=== PATIENT | female | born 1945 | race Caucasian/White ===

== ENCOUNTER 2016-11-18 10:29 | Inpatient (IN) | payer OTHER ==
--- NOTE | 2016-10-20 08:34 | HISTORY & PHYSICAL EXAMINATION ---
DATE OF ADMISSION: 11/18/2015 PROCEDURE: Left total knee replacement. HISTORY OF PRESENT ILLNESS: Silvina is a dom 71-year-old female who presents for preoperative evaluation prior to her left knee replacement. She states she has been having the pain in this knee for several years now, which has gradually worsened, it has now gotten to the point that it is affecting her daily activities including walking, standing, and going up and down steps. She has tried previous cortisone injection without relief. She has also had a previous knee arthroscopy in 2005 without relief. She has tried oral anti-inflammatories as well as extra strength Tylenol. At this point in time, has failed conservative measures and at this point in time would like to proceed with a left knee replacement. PAST MEDICAL HISTORY: 1. Hypertension. 2. High cholesterol. 3. Hypothyroidism. 4. GERD. ALLERGIES: No known drug allergies. CURRENT MEDICATIONS: 1. Atenolol 50 mg 1/2 tablet daily. 2. Triamterene-hydrochlorothiazide 37.5/25 mg 1/2 tablet daily. 3. Meloxicam 7.5 mg daily. 4. Simvastatin 40 mg daily. 5. Potassium chloride 10 mEq daily. 6. Levothyroxine 50 mcg daily. 7. Vitamin D3. 8. Omeprazole 20 mg daily. 9. Benadryl for sleep. 10. Potassium chloride 10 mEq daily. 11. Oxybutynin 10 mg daily. PAST SURGICAL HISTORY: 1. Left knee arthroscopy 2005. 2. Right knee arthroscopy 2010. FAMILY HISTORY: Noncontributory. SOCIAL HISTORY: The patient lives in a 2-story home. She denies any history of smoking or tobacco use. No alcohol consumption. REVIEW OF SYSTEMS: Otherwise negative. Please see HPI for pertinent positives. PHYSICAL EXAMINATION: GENERAL: Dom 71-year-old female in no acute distress, alert and oriented x3. She is 61 inches tall, weighs 205 pounds. VITAL SIGNS: Blood pressure is 132/72, pulse 72. HEENT: Normocephalic, atraumatic. CARDIAC: Regular rate and rhythm. No murmurs or gallops appreciated. Resting pulse 72 beats minute. LUNGS: Clear to auscultation without rales or wheeze bilaterally. ABDOMEN: Soft, nontender. Bowel sounds present. EXTREMITIES: Left lower extremity is neurovascularly intact. Calves are soft and nontender. DP pulse +2. Demonstrates good quad tone. Straight leg raise without lag. No erythema or warmth. Has mild effusion. Overall has varus alignment. Positive crepitation with motion, range of motion is 0/5/110. Knee is ligamentously stable. IMAGING: Reviewed of left knee show findings consistent with end-stage DJD including complete loss of joint space of the medial compartment with [id number] changes including joint space narrowing, subchondral sclerosis, and osteophyte formation noted. IMPRESSION: 1. Left knee degenerative joint disease. 2. Hypertension. 3. High cholesterol. 4. Hypothyroidism. 5. Gastroesophageal reflux disease. PLAN: Further care discussed with patient. At this point in time, has failed conservative measures and would like to proceed with a left knee replacement. Plan on discharge home with home health physical therapy. We will place on aspirin 81 mg p.o. b.i.d. for a month postop.
[2016-10-20 08:50] VITALS: BMI 39.0
--- NOTE | 2016-10-20 09:16 | PAT Medication Instructions ---
Service Date Oct 20, 2016. Current Home Medication List Atenolol (Tenormin), 25 MG PO QAM Carboxymethylcellulose Sodium (Refresh), 1 DROP OPB UD PRN for prn Cholecalciferol (Vitamin D3), 5,000 UNIT PO QAM Doxylamine Succinate (Sleep) (Sleep Aid), 1 TAB PO HS Levothyroxine Sodium (Levothyroxine Sodium), 1 TAB PO QAM Meloxicam (Mobic), 7.5 MG PO QAM Omeprazole (Prilosec), 20 MG PO QAM Potassium Ext Rel (Klor-Con), 10 MEQ PO QAM Simvastatin (Zocor), 40 MG PO QPM Triamterene/Hctz (Dyazide 37.5MG/25MG), 1 TAB PO QAM [oxybutynin er], 10 MG PO QAM Medication Instructions For Your Scheduled Surgery - Hold the following medications the morning of surgery: Cholecalciferol (Vitamin D3), 5,000 UNIT PO QAM Potassium Ext Rel (Klor-Con), 10 MEQ PO QAM Triamterene/Hctz (Dyazide 37.5MG/25MG), 1 TAB PO QAM Meloxicam (Mobic), 7.5 MG PO QAM (otherwise okay to continue per surgeon) - Take the following medications the morning of surgery with a sip of water OTHERWISE NOTHING TO EAT OR DRINK AFTER MIDNIGHT: Atenolol (Tenormin), 25 MG PO QAM Carboxymethylcellulose Sodium (Refresh), 1 DROP OPB UD PRN Levothyroxine Sodium (Levothyroxine Sodium), 1 TAB PO QAM Omeprazole (Prilosec), 20 MG PO QAM [oxybutynin er], 10 MG PO QAM - Take the following medications as scheduled the night before surgery: Simvastatin (Zocor), 40 MG PO QPM Doxylamine Succinate (Sleep) (Sleep Aid), 1 TAB PO HS If you have any questions please call us at [phone] (Berta Pickering PA-C ) or [phone] or [phone]
[2016-10-20 10:07] LABS: BASO % 0.2 %; BASO ABS # 0.02 K/uL (0-0.2); COMPLETE YES; EOS % 1.1 %; HEMATOCRIT 41.5 % (37-47); IG% 0.2 %; LYMPH % 27.5 %; LYMPH ABS # 2.68 K/uL (1.2-3.4); MEAN CELL VOLUME 89.6 fL (80-100); MEAN CORPUSCULAR HEMOGLOBIN 30.5 pg (25-34); MEAN PLATELET VOLUME 10.6 fL (7.4-10.4); MONO % 5.9 %; NEUT % 65.1 %; PLATELET COUNT 230 K/uL (130-400); RED BLOOD COUNT 4.63 M/uL (4.2-5.4); WHITE BLOOD COUNT 9.76 K/uL (4.8-10.8)
[2016-10-20 10:12] LABS: URINE APPEARANCE CLEAR (CLEAR); URINE BILIRUBIN NEG (NEG); URINE COLOR YELLOW; URINE NITRITE NEG (NEG); URINE SPECIFIC GRAVITY 1.017 (1.000-1.030); UROBILINOGEN NEG (NEG)
--- NOTE | 2016-10-20 10:14 | DIAGNOSTIC IMAGING REPORT ---
CHEST PREADMISSION(PA/LAT) CLINICAL HISTORY: Preoperative evaluation COMPARISON STUDY: No previous studies for comparison. FINDINGS: Lung volumes are normal. There is no pneumothorax or pleural effusion. There is no evidence of pulmonary edema. Cardiac size is normal. There is a large hiatal hernia. There is no evidence of pulmonary edema. IMPRESSION: 1. No acute cardiopulmonary findings. 2. Large hiatal hernia. Electronically signed by: Bhavik Hanley M.D. 10/20/2016 10:13 AM
[2016-10-20 10:15] LABS: PROTHROMBIN TIME (PATIENT) 10.6 SECONDS (9.0-12.0)
[2016-10-20 10:18] LABS: MANUAL MICROSCOPIC REQUIRED? NO; REVIEW REQ? NO
[2016-10-20 10:21] LABS: ESTIMATED AVERAGE GLUCOSE 123 mg/dl; HA1C FLAG Normal (Normal)
[2016-10-20 11:03] LABS: BUN/CREATININE RATIO 13.2 (10-20); CREATININE 1.4 mg/dl (0.60-1.20); POTASSIUM 3.6 mmol/L (3.5-5.1)
[2016-10-20 11:28] LABS: CALCIUM 9.2 mg/dl (8.5-10.1)
[2016-11-18] VITALS (9 sets, daily range): BP systolic 91–108; BP diastolic 54–70; PULSE 48–64; TEMP 36.2–37; O2SAT 91–98; Ht 154.9 cm; Wt 95.1 kg
[~2016-11-18] VITALS: Ht 154.9 cm; Wt 95.1 kg
[2016-11-18] MEDS: TRANEXAMIC ACID INJ 1,000 MG in SODIUM CHLORIDE 0.9% 100ML 100 ML IV SCH ×2 (06:30→13:33)
--- NOTE | 2016-11-18 09:26 | History & Physical Bridge Note ---
H&P Re-Evaluation Bridge Note: I have examined the patient, reviewed the History & Physical and in the interval since the performance of the History & Physical I have noted the following changes of clinical significance: No changes noted
[~2016-11-18 10:29] MED LIST: ACETAMINOPHEN 500 MG TAB PO SCH; ATEN-173 PO; BUPIVACAINE 0.5 % 5 MG/1 ML PF 10ML VIAL ONE; CARB1SOL OPB; CEFAZOLIN 2000 MG/60 ML D5W 60 ML IV SCH; CHOL20007 PO; CeleBREX 200 MG CAP PO SCH; DEXAMETHASONE 4 MG TAB PO SCH; DOXY25TA19 PO; FAMOTIDINE 20 MG TAB PO SCH; GABAPENTIN 300 MG CAP PO SCH; LACTATED RINGER'S 1000ML IV SCH; LACTATED RINGER'S 500 ML IV SCH; LEVO50TA6 PO; MELO7.5T5 PO; METOCLOPRAMIDE HCL 10 MG TAB PO SCH; OXYBUTYNIN PO; POTA20TA16 PO; PRLSR20 PO; ROPIVACAINE 5MG/ML 30 ML 150 MG, BUPIVACAINE/EPINEPHR 0.5% MPF 30 ML, KETOROLAC TROMETH... INFIL SCH; SIMV40TA2 PO; TRIA37.5 PO
[2016-11-18] MEDS ORDERED: PROPOFOL IV EMULSION 10 MG/ML 20 ML VIAL IV ONE (12:59)
[2016-11-18] MEDS ORDERED: DEXAMETHASONE SOD INJ 4 MG/ML VIAL ONE (12:59)
[2016-11-18] MEDS ORDERED: LIDOCAINE HCL 2% 2 ML VIAL (20MG/ML) ONE (12:59)
[2016-11-18] MEDS ORDERED: ONDANSETRON INJ 2 MG/ML 2 ML VIAL ONE (12:59)
[2016-11-18] MEDS ORDERED: FENTANYL CITRATE INJ 50 MCG/1 ML 2 ML VIAL ONE (13:00)
[2016-11-18] MEDS ORDERED: MIDAZOLAM HCL 1 MG/ML 2ML VIAL ONE ×2 (13:00)
[2016-11-18] MEDS ORDERED: EpHEDrine SULFATE INJ 50 MG/ML AMP IV PRN (13:15)
[2016-11-18] MEDS ORDERED: FENTANYL CITRATE INJ 50 MCG/1 ML 2 ML VIAL IV PRN (13:15)
[2016-11-18] MEDS ORDERED: ONDANSETRON INJ 2 MG/ML 2 ML VIAL IV PRN (13:15)
[2016-11-18] MEDS ORDERED: ATROPINE SULFATE 0.1 MG/ML 5ML SYR IV PRN (13:15)
[2016-11-18] MEDS ORDERED: ORTHO JOINT ANESTHETIC ONE (13:25)
[2016-11-18] MEDS ORDERED: GLYCOPYRROLATE INJ 0.2 MG/ML VIAL ONE (14:16)
[2016-11-18] MEDS ORDERED: BACITRACIN 50000 UNIT VIAL IR ONE (14:34)
[2016-11-18] MEDS ORDERED: POVIDONE-IODINE OP SOLN 30 ML BTL TOP ONE (14:56)
--- NOTE | 2016-11-18 14:58 | [facility] Post Operative Brief Note ---
Immediate Operative Summary Operative Date Nov 18, 2016. Pre-Operative Diagnosis Left Knee Degenerative Joint Disease Post-Operative Diagnosis Left Knee Degenerative Joint Disease Procedure(s) Performed Left Total Knee Arthroplasty Surgeon Dr. [place] Simental Fermentation Scientist Surgeon(s) Steven Moura PA-C Estimated Blood Loss 5ml Findings severe djd left knee Specimens A. Left Knee Bone and Tissue Complication(s) None Disposition Recovery Room / PACU
--- NOTE | 2016-11-18 15:15 | OPERATIVE REPORT ---
DATE OF OPERATION: 11/18/2016 PREOPERATIVE DIAGNOSIS: Severe end-stage degenerative joint disease, left knee. POSTOPERATIVE DIAGNOSIS: Severe end-stage degenerative joint disease, left knee. PROCEDURE: Left total knee arthroplasty utilizing Haney \T\ Nephew Journey II nonblock total knee arthroplasty size 4 femur, 3 tibia, 9 poly, and 29 oval patella. SURGEON: Dr. Simental. FLOOR STEWARD/STEWARDESS: Milagro Moura, who was necessary for prepping, draping, retraction, wound closure of deep fascia, subQ and skin and was necessary for the case. ESTIMATED BLOOD LOSS: 5 mL. COMPLICATIONS: None. TOURNIQUET TIME: 40 minutes. HISTORY OF PRESENT ILLNESS: The patient presents as a very pleasant 71-year-old white female with complaints of ongoing pain attributable to her left knee. She has been unresponsive to conservative therapy and presents today for total knee arthroplasty. She has failed all attempts at conservative management including injections, viscosupplementations, relative rest, activity modification and bracing. PROCEDURE: The patient was properly prepped and draped in supine position for total knee arthroplasty after identifying the appropriate surgical site. An anterior midline incision was made through the subcutaneous tissues down to the region of the extensor mechanism. A medial parapatellar incision was subsequently made. Meticulous hemostasis was obtained and performed at all times. The patella having been subluxed lateralward, medial and lateral meniscal remnants were excised. The patellar cut was then initially made and was sized to the appropriate size. After subluxing the tibia forward the appropriate meniscal fragments having been removed the distal femur was then cut first utilizing a Haney and Nephew block. The distal femoral cuts and chamfer cuts were all made under direct visualization and the proximal tibial osteotomy cut was also made utilizing Haney and Nephew blocks and checked with an extramedullary guide. The appropriate trial components on the femur and tibia were placed. Appropriate trial spacers were used to check flexion and extension gaps. With flexion and extension gaps being equal, the components were then subsequently after thorough irrigation and debridement lavage components were then subsequently cemented in the following order: femur, tibia and patella. Exparel was used for intraoperative anesthesia, the medial parapatellar incision was closed utilizing #1 Vicryl, subQ was closed with 2-0 Vicryl, skin was closed with skin clips. A sterile compression dressing was placed. The patient was taken to recovery room in stable condition. Due to the complex nature of the procedure, the entire surgery was performed with the operational assistance of Milagro Moura PA-C. The assistant project engineer, under direct supervision, was involved in the actual performance of all aspects of the surgical procedure including hemostasis, tissue retraction and incision, instrument management, patient positioning, and wound closure. I attest to the content of the Intraoperative Record and any orders documented therein. Any exceptio ns are noted below.
[2016-11-18] MEDS ORDERED: ALUMINUM/MAGNESIUM/SIMETH (MAALOX MAX) 30 ML UDC PO PRN (15:30)
[2016-11-18] MEDS ORDERED: MoRPHine SULFATE 2 MG/ML CARP IV PRN ×2 (15:30→17:45)
[2016-11-18] MEDS ORDERED: MAGNESIUM HYDROXIDE SUSP 30 ML UDC PO PRN (15:30)
[2016-11-18] MEDS ORDERED: BISACODYL 10 MG SUPP PR PRN (15:30)
[2016-11-18] MEDS ORDERED: KETOROLAC TROMETHAMINE 15 MG/ML VIAL IV. PRN (15:30)
[2016-11-18] MEDS ORDERED: SOD PHOSPHATE/SOD BIPHOSPHATE ENEMA 132 ML BTL PR PRN (15:30)
--- NOTE | 2016-11-18 16:31 | DIAGNOSTIC IMAGING REPORT ---
LEFT KNEE 2 VIEWS History: Left total knee arthroplasty. Degenerative arthritis. Postop. FINDINGS: The patient is status post a left total knee arthroplasty. The hardware is intact. No fracture or dislocation. Skin lucas and surgical drains are in place. IMPRESSION: Left total knee arthroplasty. No evidence for hardware complication. Electronically signed by: Corey Frias M.D. 11/18/2016 4:29 PM Dictated Date/Time: 11/18/2016 4:29 PM
--- NOTE | 2016-11-18 17:00 | Anesthesiology Progress Note ---
Anesthesia Post Op Note Date & Time Nov 18, 2016 at 16:59 Vital Signs Pain Intensity: 0 Vital Signs Past 12 Hours Date Time Temp Pulse Resp B/P Pulse Ox O2 Delivery O2 Flow Rate FiO2 11/18/16 16:25 37.2 64 16 107/53 99 Nasal Cannula 4 11/18/16 16:15 37.2 64 16 97/59 94 Nasal Cannula 4 11/18/16 16:05 63 16 101/59 93 Nasal Cannula 4 11/18/16 15:55 64 16 105/58 93 Nasal Cannula 4 11/18/16 15:45 69 16 90/58 98 Mask 10 11/18/16 15:36 36.3 73 16 93/52 95 Mask 10 11/18/16 11:02 97 Room Air 11/18/16 10:54 37 48 20 101/70 97 Room Air Notes Mental Status: alert / awake / arousable, participated in evaluation Pt Amnestic to Procedure: Yes Nausea / Vomiting: adequately controlled Pain: adequately controlled Airway Patency, RR, SpO2: stable & adequate BP & HR: stable & adequate Hydration State: stable & adequate Neuraxial Anesthesia: was administered, sensory block is resolving Anesthetic Complications: no major complications apparent
[2016-11-18] MEDS ORDERED: MoRPHine SULFATE 10 MG/ML CARP/VIAL IV PRN (17:45)
[2016-11-18] MEDS ORDERED: MoRPHine SULFATE 4 MG/ML 1 ML CARP\\VIAL IV PRN (17:45)
[2016-11-18] MEDS: D5W AND 1/2NSS + 20MEQ KCL 1,000 ML IV SCH (18:01)
[2016-11-18] MEDS: FERROUS GLUCONATE 324 MG TAB PO SCH (18:33)
[2016-11-18] MEDS ORDERED: INFLUENZA VIRUS QUAD VACCINE 0.5 ML SYR IM. ONE (20:45)
[2016-11-18] MEDS ORDERED: INFLUENZA ADMINISTRATION CHARGE ONE (20:45)
[2016-11-18] MEDS: DOCUSATE SODIUM 100 MG CAP PO SCH (21:16)
[2016-11-18] MEDS: SENNA 8.6 MG TAB PO SCH (21:16)
[2016-11-18] MEDS: SIMVASTATIN 40 MG TAB PO SCH (21:17)
[2016-11-18] MEDS: ASPIRIN 81 MG ECTAB PO SCH (21:17)
[2016-11-18] MEDS: OXYCODONE HCL 10 MG TABCR (OXYCONTIN) PO SCH (21:20)
[2016-11-18] MEDS: CEFAZOLIN IV 2,000 MG in DEXTROSE 5% 50ML 50 ML IV SCH (22:08)
[2016-11-18] MEDS: ACETAMINOPHEN 500 MG TAB PO SCH (22:08)
[2016-11-19] VITALS (10 sets, daily range): BP systolic 86–127; BP diastolic 45–73; PULSE 43–77; TEMP 36.2–37.2; O2SAT 91–97
[2016-11-19] MEDS: D5W AND 1/2NSS + 20MEQ KCL 1,000 ML IV SCH ×2 (04:29→14:26)
[2016-11-19] MEDS: ACETAMINOPHEN 500 MG TAB PO SCH ×3 (05:36→22:16)
[2016-11-19] MEDS: LEVOTHYROXINE 50 MCG TAB PO SCH (05:36)
[2016-11-19] MEDS: CEFAZOLIN IV 2,000 MG in DEXTROSE 5% 50ML 50 ML IV SCH (05:37)
[2016-11-19 06:34] LABS: HEMATOCRIT 35.8 % (37-47); MEAN CELL VOLUME 89.3 fL (80-100); MEAN CORPUSCULAR HEMOGLOBIN 29.7 pg (25-34); MEAN CORPUSCULAR HGB CONC 33.2 g/dl (32-36); MEAN PLATELET VOLUME 10.5 fL (7.4-10.4); PLATELET COUNT 182 K/uL (130-400); RED BLOOD COUNT 4.01 M/uL (4.2-5.4); WHITE BLOOD COUNT 14.35 K/uL (4.8-10.8)
[2016-11-19 07:05] LABS: BUN/CREATININE RATIO 10.3 (10-20); CALCIUM 8.4 mg/dl (8.5-10.1); CREATININE 1.4 mg/dl (0.60-1.20); POTASSIUM 3.8 mmol/L (3.5-5.1)
[2016-11-19] MEDS: OXYCODONE HCL 10 MG TABCR (OXYCONTIN) PO SCH ×2 (08:44→21:00)
[2016-11-19] MEDS: CHOLECALCIFEROL 1000 INTER.UNIT TAB PO SCH (08:46)
[2016-11-19] MEDS: PANTOprazole SOD 40 MG TAB PO SCH (08:47)
[2016-11-19] MEDS: MULTIVITAMIN TAB PO SCH (08:47)
[2016-11-19] MEDS: POTASSIUM CHLORIDE 10 MEQ TABCR PO SCH (08:47)
[2016-11-19] MEDS: OXYBUTYNIN CHLORIDE 5 MG TABCR PO SCH (08:48)
[2016-11-19] MEDS: TRIAMTERENE/HCTZ 37.5/25MG CAP PO SCH (08:48)
[2016-11-19] MEDS: DOCUSATE SODIUM 100 MG CAP PO SCH ×2 (08:49→21:48)
[2016-11-19] MEDS: ASPIRIN 81 MG ECTAB PO SCH ×2 (08:49→21:48)
[2016-11-19] MEDS: FERROUS GLUCONATE 324 MG TAB PO SCH ×3 (08:49→17:45)
--- NOTE | 2016-11-19 09:53 | Orthopedic Progress Note ---
Orthopedic Progress Note Date of Service Nov 19, 2016. Subjective Post OP Day: 1 (s/p Left TKA) Reports: feeling well, pain controlled w PO medications, Denies: SOB, calf pain , chest pain, complaints, light headedness, nausea / vomiting Objective calves soft nontender, N/V intact, capillary refill less than 2 sec., dressing C /D/I, A&O x3, toes mobile, hemovac drainage (100cc/8 hours) Date Time Temp Pulse Resp B/P Pulse Ox O2 Delivery O2 Flow Rate FiO2 11/19/16 07:23 36.5 66 17 115/64 93 Room Air 11/19/16 03:00 37.2 77 17 104/64 91 Room Air 11/18/16 23:35 Room Air 11/18/16 23:35 96/54 11/18/16 23:03 36.3 56 18 91/55 91 Room Air 11/18/16 19:45 36.2 50 16 95/60 97 Nasal Cannula 4.0 11/18/16 18:39 36.3 61 16 99/54 96 Nasal Cannula 4.0 11/18/16 17:45 36.7 63 16 91/54 96 Nasal Cannula 4.0 11/18/16 17:43 Nasal Cannula 2.0 11/18/16 17:23 Nasal Cannula 2.0 11/18/16 17:15 36.3 61 18 108/68 98 Nasal Cannula 4.0 11/18/16 16:40 36.3 64 16 101/67 96 Nasal Cannula 2.0 11/18/16 16:25 37.2 64 16 107/53 99 Nasal Cannula 4 11/18/16 16:15 37.2 64 16 97/59 94 Nasal Cannula 4 11/18/16 16:05 63 16 101/59 93 Nasal Cannula 4 11/18/16 15:55 64 16 105/58 93 Nasal Cannula 4 11/18/16 15:45 69 16 90/58 98 Mask 10 11/18/16 15:36 36.3 73 16 93/52 95 Mask 10 11/18/16 11:02 97 Room Air 11/18/16 10:54 37 48 20 101/70 97 Room Air Laboratory Results 24 Hours: Test 11/19/16 06:00 Hematocrit 35.8 % Hemoglobin 11.9 g/dL Prothromb Time International Ratio 1.0 Prothrombin Time 11.0 SECONDS Assessment & Plan Assessment: POD #1 s/p Left TKA -PT/OT -dvt proph with GLENIS/SCD/ASA plan for d/c home with HHPT when stable Discharge Planning Discharge Planning: home with home health DVT Prophylaxis: TEDs, SCDs, ASA (ASA 81mg po bid x 1month) Therapy: Physical Therapy
--- NOTE | 2016-11-19 10:25 | Clinical Documentation Query ---
IGOR Sloan : CLINICAL DOCUMENTATION QUERY Patient is a 71 year old female who on 11/18 underwent left TKA. Preoperative and postoperative creatinine values were 1.40 mg/dl, both associated with an also identical estimated GFR of 38 ml/min. She is being treated with IVF and monitored with serial chemistries. Risk factors include age, medications,and hypertension. In your clinical opinion is this patient being managed for: ( x ) Chronic kidney disease, stage 3 ( ) Other explanation of clinical findings (Please Explain) ( ) Unable to determine (Please Define) ( ) Need to Discuss ( ) Not Agree The medical record reflects the following clinical findings, treatment, and risk factors. Clinical Indicators: As above Treatment: She is being treated with IVF and monitored with serial chemistries. Risk Factors: Age, medications,and hypertension Chronic Kidney Disease (CKD), stages 1-5. Documenting the stage of CKD will improve data integrity and will help clarify vague terms such as "renal insufficiency" or "chronic renal failure." The stages of CKD according to the [employer] are as follows: Stage I: GFR >90 Stage II: GFR 60-89 Stage III: GFR 30-59 Stage IV: GFR 15-29 Stage V: GFR <15 Please clarify and document your clinical opinion in the progress notes and discharge summary. Terms such as "probable", "suspected", "likely", "questionable", "possible", or "still to be ruled out" are acceptable. IF IN AGREEMENT, YOU MUST DOCUMENT ABOVE DIAGNOSTIC STATEMENT IN DAILY PROGRESS NOTES AND DISCHARGE SUMMARY. This document is not part of the patient's record. Thank You, Poncho Rivera, DURGA [phone]
[2016-11-19] MEDS: ONDANSETRON INJ 2 MG/ML 2 ML VIAL IV PRN ×2 (13:14→21:04)
--- NOTE | 2016-11-19 13:38 | Discharge Instructions ---
Discharge Instructions Admission Reason for Admission: Left Knee Osteoarthritis Discharge Discharge Diagnosis / Problem: Left Total Knee Replacement Discharge Goals Goal(s): Decrease discomfort, Improve function, Increase independence Activity Recommendations Activity Limitations: as noted below Weightbearing Status: Left weightbearing (as tolerated) . Instructions / Follow-Up Instructions / Follow-Up ACTIVITY RECOMMENDATIONS: SELF CARE INSTRUCTIONS AFTER TOTAL KNEE REPLACEMENT A. You may need to continue a physical therapy program after discharge from the hospital. There are several options available to you. Your doctor will assist you in selecting the best one for you. 1. An out-patient facility 2 to 3 times a week for therapy or home therapy. 2. Continue working on all exercises taught to you in the hospital. Your goals should be to increase bending of your knee to 90 degrees and beyond and to fully straighten your knee. B. You may progress at your own pace from walking with a walker or crutches to a cane; then to no assistive devices. C. Make walking a part of your daily routine. Be up as much as comfortable with rest periods throughout the day. Rest with leg elevation is very important. Use the ice wrap frequently for the first 3-4 weeks. D. There are no restrictions on activities. You may ride in a car, shop, participate in manager new product and all social activities. E. Wear the long elastic stockings (GLENIS hose) 20 hours a day for 2 weeks after surgery. They can be removed several times a day for laundering and for a bath. F. You may shower, no tub baths until cleared by your doctor. SPECIAL CARE INSTRUCTIONS: VERY IMPORTANT TO READ AND REVIEW A. There are a few signs you need to watch for after you are home. Call [facility] if you notice any of the followin. Increased severe knee pain. Some pain is expected especially when you exercise. 2. Increased swelling in your leg or knee; pain or swelling of the calf muscle in either lower leg. 3. Any fluid drainage from the incision. 4. Shortness of breath or chest pain. B. Please call [facility] at if you have any concerns or questions about your operation or recovery. The doctor or his nurse will return your call promptly. C. You must take antibiotics before dental work, bladder, bowel or other surgery. Your doctor will provide you with a permanent care to carry describing this precaution. IMPORTANT: * REMEMBER TO TAKE ASPIRIN, 81 MG, TWICE DAILY FOR 4 WEEKS UNLESS OTHERWISE DIRECTED. THIS IS YOUR BLOOD THINNER. * HIGH RISK PATIENTS MAY BE PRESCRIBED A STRONGER BLOOD THINNER. THIS WILL BE PROVIDED AT DISCHARGE. * CALL IF INCREASED PAIN, REDNESS, DRAINAGE OR FEVER GREATER THAT 101. * WEAR GLENIS HOSE 20 HOURS PER DAY FOR 2 WEEKS. * YOU MAY HAVE A LARGE BAND-AID LIKE DRESSING (SILVERON). THIS WILL REMAIN ON YOUR INCISION FOR 7 DAYS, THEN CAN BE REMOVED. IF INCISION IS LEAKING THROUGH DRESSING, CALL THE OFFICE . Prevena- This is a large suction dressing covering your incision. This will help pull any excess drainage from the wound and allow your incision to heal properly. You may shower with this if you can keep the unit outside of the shower. If any bleeding or leakage is noted please call your doctor's office. This will remain on your incision for 7 days and then should be removed. This can be done yourself or by the home nursing staff if applicable. The entire unit is disposable once removed. Once removed, keep incision clean and dry. If redness or drainage is noted, please call your surgeon. FOLLOW UP VISIT: If appointment is not already scheduled: Please call [facility] to make a follow-up appointment for 2 weeks after your surgery at . Current Hospital Diet Patient's current hospital diet: Regular Diet Discharge Diet Recommended Diet: Regular Diet Procedures Procedures Performed: Left Total Knee Arthroplasty Pending Studies Studies pending at discharge: no Laboratory Results Hemoglobin A1c Test 10/20/16 09:17 Range/Units Estimated Average Glucose 123 mg/dl Hemoglobin A1c 5.9 H 4.5-5.6 % Medical Emergencies . Who to Call and When: Medical Emergencies: If at any time you feel your situation is an emergency, please call 911 immediately. . Non-Emergent Contact Non-Emergency issues call your: Primary Care Provider, Surgeon . "Provider Documentation" section prepared by Steven Moura. VTE Core Measure Inpt VTE Proph given/why not?: Other Anticoagulation (ASA 81mg po bid x 1 month ), T.E.D. Stockings, SCD's
[2016-11-19] MEDS: CeleBREX 200 MG CAP PO SCH (21:48)
[2016-11-19] MEDS: SIMVASTATIN 40 MG TAB PO SCH (22:16)
[2016-11-19] MEDS: SENNA 8.6 MG TAB PO SCH (22:16)
[2016-11-20] MEDS: LEVOTHYROXINE 50 MCG TAB PO SCH (05:39)
[2016-11-20] MEDS: ACETAMINOPHEN 500 MG TAB PO SCH ×3 (05:39→21:34)
[2016-11-20 06:50] VITALS: BP 123/55; PULSE 47; TEMP 36.3; O2SAT 91
--- NOTE | 2016-11-20 08:50 | Orthopedic Progress Note ---
Orthopedic Progress Note Date of Service Nov 20, 2016. Subjective Post OP Day: 2 Reports: feeling well, pain controlled w PO medications, Denies: SOB, calf pain , chest pain, complaints, light headedness, nausea / vomiting Objective calves soft nontender, N/V intact, capillary refill less than 2 sec., dressing C /D/I, A&O x3, toes mobile Date Time Temp Pulse Resp B/P Pulse Ox O2 Delivery O2 Flow Rate FiO2 11/20/16 06:50 36.3 47 17 123/55 91 Room Air 11/20/16 00:00 Room Air 11/19/16 23:05 36.5 54 18 123/73 95 Room Air 11/19/16 19:02 36.4 48 16 127/61 97 Room Air 11/19/16 17:27 48 113/69 11/19/16 15:30 95 Room Air 11/19/16 15:18 36.2 43 16 93/55 95 Room Air 11/19/16 13:30 105/63 11/19/16 11:28 96/58 11/19/16 11:03 36.3 44 17 86/45 97 Room Air Assessment & Plan Assessment: POD #2 s/p Left TKA -PT/OT -dvt proph with GLENIS/SCD/ASA plan for d/c home with HHPT when stable, likely after PT today Discharge Planning Discharge Planning: home with home health DVT Prophylaxis: TEDs, SCDs, ASA (ASA 81mg po bid x 1month) Therapy: Physical Therapy
[2016-11-20] MEDS ORDERED: ACET-1138 PO (08:52)
[2016-11-20] MEDS ORDERED: ASPEC81 PO (08:52)
[2016-11-20] MEDS ORDERED: RXC5 PO (08:53)
[2016-11-20] MEDS ORDERED: CLC100 PO (08:53)
[2016-11-20] MEDS ORDERED: CLB200 PO (08:53)
[2016-11-20] MEDS ORDERED: ONDA8TAB6 PO (08:53)
[2016-11-20] MEDS ORDERED: OXYSR10 PO (08:53)
--- NOTE | 2016-11-20 08:55 | Discharge Summary ---
Orthopedic Discharge Summary Admission Date/Reason Nov 18, 2016 at 10:30 Left Knee Osteoarthritis. Discharge Date/Disposition Nov 20, 2016 Home with services Diagnosis Principal Diagnosis: left knee arthritis Procedure(s) Performed Left TKA Consultations NONE Medication Reconciliation New Medications: Ondansetron Hcl (Zofran) 8 Mg Tab 8 MG PO Q8 PRN for Nausea, #20 TAB Acetaminophen (Tylenol Extra Strength) 500 Mg Tab 1000 MG PO Q8H, #126 TAB Aspirin (Aspirin EC Low Dose) 81 Mg Ectab 81 MG PO BID for 30 Days Celecoxib (Celebrex) 200 Mg Cap 200 MG PO BID, #60 CAP Docusate Sodium (Docusate Sodium) 100 Mg Cap 100 MG PO BID for 15 Days, #30 CAP Oxycodone HCl (Oxycontin) 10 Mg Tabcr 10 MG PO Q12, #20 Oxycodone HCl (Oxycodone HCl) 5 Mg Tab 5-10 MG PO Q4H PRN for Pain, #60 TAB Continued Medications: Atenolol (Tenormin) 25 Mg Tab 25 MG PO QAM, TAB Carboxymethylcellulose Sodium (Refresh) 1 % Kirit 1 DROP OPB UD PRN for prn Cholecalciferol (Vitamin D3) 2,000 Unit Tab 5000 UNIT PO QAM for 90 Days, #18 TAB 3 Refills Doxylamine Succinate (Sleep) (Sleep Aid) 25 Mg Tab 1 TAB PO HS Levothyroxine Sodium (Levothyroxine Sodium) 50 Mcg Tab 1 TAB PO QAM for 90 Days, #90 TAB 3 Refills Omeprazole (Prilosec) 20 Mg Capcr 20 MG PO QAM, CAP Potassium Ext Rel (Klor-Con) 20 Meq Tabcr 10 MEQ PO QAM, TAB Simvastatin (Zocor) 40 Mg Tab 40 MG PO QPM, TAB Triamterene/Hctz (Dyazide 37.5MG/25MG) Cap 1 TAB PO QAM, CAP [oxybutynin er] () 10 MG PO QAM Discontinued Medications: Meloxicam (Mobic) 7.5 Mg Tab 7.5 MG PO QAM, TAB Admission Physical Exam As per Admitting History & Physical. Hospital Course Patient was a same day admission after undergoing a successful left TKA. she tolerated the procedure well. Post-operatively, her activity was progressed and well tolerated. Please refer to daily progress notes and PT notes for complete details. After exam on 11/20/16, patient felt to be stable for discharge home with HHPT. Patient will f/u in the office in 2 weeks for further evaluation including x-rays and incision check, sooner if having any issues or concerns. Below are pertinent labs/studies during their hospital stay: Last Resulted CBC 11/19/16 06:00 Last Resulted BMP 11/19/16 06:00 Last Vital Signs Documentation Date Time Temp Pulse Resp B/P Pulse Ox O2 Delivery O2 Flow Rate FiO2 11/20/16 06:50 36.3 47 17 123/55 91 Room Air 11/18/16 19:45 4.0 Discharge Instructions ACTIVITY RECOMMENDATIONS: SELF CARE INSTRUCTIONS AFTER TOTAL KNEE REPLACEMENT A. You may need to continue a physical therapy program after discharge from the hospital. There are several options available to you. Your doctor will assist you in selecting the best one for you. 1. An out-patient facility 2 to 3 times a week for therapy or home therapy. 2. Continue working on all exercises taught to you in the hospital. Your goals should be to increase bending of your knee to 90 degrees and beyond and to fully straighten your knee. B. You may progress at your own pace from walking with a walker or crutches to a cane; then to no assistive devices. C. Make walking a part of your daily routine. Be up as much as comfortable with rest periods throughout the day. Rest with leg elevation is very important. Use the ice wrap frequently for the first 3-4 weeks. D. There are no restrictions on activities. You may ride in a car, shop, participate in drawing in hand and all social activities. E. Wear the long elastic stockings (GLENIS hose) 20 hours a day for 2 weeks after surgery. They can be removed several times a day for laundering and for a bath. F. You may shower, no tub baths until cleared by your doctor. SPECIAL CARE INSTRUCTIONS: VERY IMPORTANT TO READ AND REVIEW A. There are a few signs you need to watch for after you are home. Call [facility] if you notice any of the followin. Increased severe knee pain. Some pain is expected especially when you exercise. 2. Increased swelling in your leg or knee; pain or swelling of the calf muscle in either lower leg. 3. Any fluid drainage from the incision. 4. Shortness of breath or chest pain. B. Please call [facility] at if you have any concerns or questions about your operation or recovery. The doctor or his nurse will return your call promptly. C. You must take antibiotics before dental work, bladder, bowel or other surgery. Your doctor will provide you with a permanent care to carry describing this precaution. IMPORTANT: * REMEMBER TO TAKE ASPIRIN, 81 MG, TWICE DAILY FOR 4 WEEKS UNLESS OTHERWISE DIRECTED. THIS IS YOUR BLOOD THINNER. * HIGH RISK PATIENTS MAY BE PRESCRIBED A STRONGER BLOOD THINNER. THIS WILL BE PROVIDED AT DISCHARGE. * CALL IF INCREASED PAIN, REDNESS, DRAINAGE OR FEVER GREATER THAT 101. * WEAR GLENIS HOSE 20 HOURS PER DAY FOR 2 WEEKS. * Prevena- This is a large suction dressing covering your incision. This will help pull any excess drainage from the wound and allow your incision to heal properly. You may shower with this if you can keep the unit outside of the shower. If any bleeding or leakage is noted please call your doctor's office. This will remain on your incision for 7 days and then should be removed. This can be done yourself or by the home nursing staff if applicable. The entire unit is disposable once removed. Once removed, keep incision clean and dry. If redness or drainage is noted, please call your surgeon. FOLLOW UP VISIT: If appointment is not already scheduled: Please call [facility] to make a follow-up appointment for 2 weeks after your surgery at .
[2016-11-20] MEDS: PANTOprazole SOD 40 MG TAB PO SCH (08:58)
[2016-11-20] MEDS: OXYBUTYNIN CHLORIDE 5 MG TABCR PO SCH (08:59)
[2016-11-20] MEDS: CHOLECALCIFEROL 1000 INTER.UNIT TAB PO SCH (08:59)
[2016-11-20] MEDS: MULTIVITAMIN TAB PO SCH (08:59)
[2016-11-20] MEDS: TRIAMTERENE/HCTZ 37.5/25MG CAP PO SCH (08:59)
[2016-11-20] MEDS: FERROUS GLUCONATE 324 MG TAB PO SCH ×3 (09:00→17:45)
[2016-11-20] MEDS: POTASSIUM CHLORIDE 10 MEQ TABCR PO SCH (09:00)
[2016-11-20] MEDS: OXYCODONE HCL 10 MG TABCR (OXYCONTIN) PO SCH (09:10)
[2016-11-20 09:11] VITALS: BP 110/70; PULSE 63
[2016-11-20] MEDS: CeleBREX 200 MG CAP PO SCH ×2 (10:17→20:56)
[2016-11-20] MEDS: DOCUSATE SODIUM 100 MG CAP PO SCH ×2 (10:17→20:54)
[2016-11-20] MEDS: ASPIRIN 81 MG ECTAB PO SCH ×2 (10:17→20:54)
[2016-11-20] MEDS: ONDANSETRON INJ 2 MG/ML 2 ML VIAL IV PRN (11:09)
[2016-11-20 11:13] VITALS: BP 118/74; PULSE 57
[2016-11-20 13:23] VITALS: BP 121/71; PULSE 53
[2016-11-20 15:09] VITALS: BP 139/77; PULSE 53; TEMP 36.4; O2SAT 94
[2016-11-20] MEDS: TRAMADOL HCL 50 MG TAB PO PRN ×2 (18:09→22:34)
[2016-11-20] MEDS: SIMVASTATIN 40 MG TAB PO SCH (20:54)
[2016-11-20] MEDS: SENNA 8.6 MG TAB PO SCH (20:55)
[2016-11-20 23:02] VITALS: BP 146/76; PULSE 50; TEMP 36.5; O2SAT 91
[2016-11-21] VITALS (10 sets, daily range): BP systolic 109–151; BP diastolic 64–84; PULSE 45–75; TEMP 36.5–36.8; O2SAT 86–99
[2016-11-21] MEDS: LEVOTHYROXINE 50 MCG TAB PO SCH (06:05)
[2016-11-21] MEDS: ACETAMINOPHEN 500 MG TAB PO SCH ×3 (06:05→22:00)
--- NOTE | 2016-11-21 07:22 | Orthopedic Progress Note ---
Orthopedic Progress Note Date of Service Nov 21, 2016. Subjective Post OP Day: 2 Reports: feeling well, pain controlled w PO medications, Denies: SOB, calf pain , chest pain, complaints, light headedness, nausea / vomiting Objective calves soft nontender, N/V intact, capillary refill less than 2 sec., dressing C /D/I (prevena intact), A&O x3, toes mobile Date Time Temp Pulse Resp B/P Pulse Ox O2 Delivery O2 Flow Rate FiO2 11/20/16 23:10 Room Air 11/20/16 23:02 36.5 50 17 146/76 91 Room Air 11/20/16 15:10 Room Air 11/20/16 15:09 36.4 53 16 139/77 94 Room Air 11/20/16 13:23 53 121/71 11/20/16 11:13 57 118/74 11/20/16 09:11 63 110/70 11/20/16 08:19 Room Air Assessment & Plan Assessment: POD #3 s/p Left TKA -PT/OT -dvt proph with GLENIS/SCD/ASA plan for d/c home with HHPT when stable, likely after PT today Bradycardia- states she normally has a lower HR, she remains asymptomatic. will cont to observe Discharge Planning Discharge Planning: home with home health DVT Prophylaxis: TEDs, SCDs, ASA (ASA 81mg po bid x 1month) Therapy: Physical Therapy
[2016-11-21] MEDS ORDERED: ULT50X PO (07:29)
[2016-11-21] MEDS: FERROUS GLUCONATE 324 MG TAB PO SCH ×3 (07:40→16:54)
[2016-11-21] MEDS: OXYBUTYNIN CHLORIDE 5 MG TABCR PO SCH ×2 (07:40→09:52)
[2016-11-21] MEDS: PANTOprazole SOD 40 MG TAB PO SCH ×2 (07:41→09:52)
[2016-11-21] MEDS: CHOLECALCIFEROL 1000 INTER.UNIT TAB PO SCH (07:41)
[2016-11-21] MEDS: MULTIVITAMIN TAB PO SCH (07:42)
[2016-11-21] MEDS: ASPIRIN 81 MG ECTAB PO SCH ×3 (07:42→20:53)
[2016-11-21] MEDS: TRIAMTERENE/HCTZ 37.5/25MG CAP PO SCH (07:43)
[2016-11-21] MEDS: DOCUSATE SODIUM 100 MG CAP PO SCH ×3 (07:45→20:53)
[2016-11-21] MEDS: CeleBREX 200 MG CAP PO SCH ×2 (07:45→20:52)
[2016-11-21] MEDS ORDERED: HydrALAZINE HCL 20 MG/ML VIAL IV. PRN (09:00)
--- NOTE | 2016-11-21 09:09 | History and Physical ---
History & Physical consultation done [id number]
[2016-11-21] MEDS: POTASSIUM CHLORIDE 10 MEQ TABCR PO SCH (09:37)
--- NOTE | 2016-11-21 10:02 | INTERNAL MEDICINE CONSULTATION ---
DATE OF ADMISSION: 11/21/2016 This is level 3 inpatient consultation, 35 minutes. PHYSICIAN REQUESTING CONSULTATION: Dr. Cuba Simental. REASON FOR CONSULTATION: Bradycardia and hypoxia. HISTORY OF PRESENT ILLNESS: The patient is a 71-year-old white female with significant past medical history of hypothyroidism, hypertension, admitted to Dr. Simental' service because of left knee degenerative joint disease. The patient had the procedure done on 11/18/[address] Simental. The procedure was for left knee degenerative joint disease, had left total knee arthroplasty. Per report, the patient has been doing well today, is planning to go home. However, she developed hypoxic dizziness and bradycardia when she was up to the restroom. Nurse reported that heart rate has been low for 2-3 days. The lowest was 43, but the patient was asymptomatic. Today, she was feeling dizziness and bradycardia. Oxygen was checked and was 86% on room air and improved to 93% on 4 liters. I was called to do the stat consult. I came to see the patient right away. When I saw the patient, she was awake, alert and orientated, reports feeling better. She is in bed, no acute respiratory distress. Oxygen level is 98% on 4 liters, heart rate in the 50s. Pulse is strong. She denied any chest pain or palpitations. Denied history of heart disease. There were no similar episodes before. The patient has hypertension, was having blood pressure medications which include atenolol which was 25 mg, last dose was supposed to be given this morning but she declined. Nurse did not give because of the episodes. Denied facial droop, slurry speeches or local weakness. Denied blurry visions. Denied chest pain, palpitation, lower extremity swelling. Denied cough, sputum, shortness of breath. Denied wheezing. Denied nausea, vomiting, abdominal pain, diarrhea, constipation, she does not feel hungry. Denied dysuria, urgency, frequencies. Denied skin rashes. PAST MEDICAL HISTORY: Include hypertension, dyslipidemia, hypothyroidism, GERD. PAST SURGICAL HISTORY: Include left total knee like I mentioned 2 days ago. History of left knee arthroscope in 2005 and right knee arthroscope in 2010. ALLERGIES: No known drug allergy. FAMILY HISTORY: Noncontributory. SOCIAL HISTORY: Denied history of tobacco abuse, alcohol abuse or illicit drug abuse. REVIEW OF SYSTEMS: Please see HPI. Otherwise, 14-point organ system review was negative. MEDICATIONS: Currently taking include aspirin 81 mg p.o. b.i.d., atenolol 25 mg p.o. q.a.m., Celebrex 200 mg p.o. b.i.d., vitamin D 5000 international units p.o. q.a.m., Colace 100 mg p.o. b.i.d., ferrous gluconate 324 mg p.o. t.i.d. with meal, Synthroid 50 mcg p.o. daily, morphine IV p.r.n. for pain, multiple vitamin 1 tab p.o. daily, oxybutynin 10 mg p.o. q.a.m., Protonix 40 mg p.o. daily, simvastatin 40 mg p.o. q.a.m., triamterene/HCTZ 37.5/25 one tab p.o. daily. PHYSICAL EXAMINATION: VITAL SIGNS: Temperature is 36.5, pulse was 45, now is 50, respiratory rate 18, blood pressure is 129/84. Pulse ox was 98% on room air. GENERAL: The patient is in no acute distress. HEAD: Normocephalic. EYES: Pupils equal and round, respond to light. EARS: Normal. NOSE: Normal. NECK: Supple. Thyroid, no enlargement. THROAT: Moist mucous membrane. HEART: Regular rhythm, S1 and S2, bradycardia. Heart rate in the 50s. LUNGS: Decreased breathing sounds. There was no wheezing, rhonchi or crackles. ABDOMEN: Obese, nontender. Bowel sound was positive. Bilateral CVA was nontender. GENITOURINARY AND RECTAL: Deferred. BILATERAL LOWER EXTREMITIES: No swelling. Homans sign was negative. Calf was nontender. Left knee S/P procedure, in dress. LABORATORY STUDIES: WBC was 14 two days ago, hemoglobin 11, platelet 182. PT/INR was 11/. BMP 2 days ago shows BUN 14, creatinine 1.4. Today's lab was ordered. Stat EKG showed bradycardia, heart rate at 45 beats per minute. There were no obvious ST-T wave changes. ASSESSMENT AND PLAN: A 71-year-old white female with the problems below: 1. Left knee status post total arthroplasty with history of degenerative joint disease. This will be managed by the primary team. Other things that need to be managed by the primary team include pain control, PT/OT, DVT prophylaxis, and discharge plan. 2. Episodes of bradycardia and hypoxia. I reviewed the patient's recent vital signs, actually she has bradycardia since admission. Heart rate was down to 48. She was on beta blockers. I believe beta blockers should be discontinued. The episodes of bradycardia and hypoxia are possible related to the bradycardia episodes. Other differential diagnosis includes acute coronary syndrome, pulmonary embolism because the patient has had recent surgeries. She could develop acute deep vein thrombosis and pulmonary embolism. The patient has some hypoxia. Pulse ox was 86% on room air. Therefore, the differential diagnosis for the episodes includes bradycardia episodes, syncope vasovagal, acute coronary syndrome, acute deep vein thrombosis or pulmonary embolism. For the plan, I will transfer to tele monitor. Continue oxygen. Check cardiac enzymes, troponin x2 sets. Hold beta ajay. Fall precaution. For the possibilities of DVT and PE, I will check D-dimer for now. D-dimer could be elevated in her, elevated level of creatinine in her condition of recent procedure. However, I will check D-dimer for now. We will repeat labs. If possible, I will have further evaluation of Doppler ultrasound or chest CT to rule out PE. If needed, have a V/Q scan to rule out PE. Because the patient has significant bradycardia, I will have cardiology to see. Deep venous thrombosis prophylaxis will be continued for now on aspirin 81 mg p.o. b.i.d. I will check TSH as well. For dyslipidemia and hypothyroidism, we will continue current medications. For hypertension, I will hold atenolol and triamterene/HCTZ for now. We will give hydralazine as needed for accelerated hypertension. We will give Protonix for GI prophylaxis. Thank you for the chance to be involved in the care of the patient. We will continue to follow up on the case. SHAD
[2016-11-21] MEDS ORDERED: PERFLUTREN LIPID MICROSPHERE (DEFINITY) IV ONE (10:21)
[2016-11-21 10:31] LABS: PARTIAL THROMBOPLASTIN RATIO 1.1; PROTHROMBIN TIME (PATIENT) 10.9 SECONDS (9.0-12.0)
--- NOTE | 2016-11-21 10:44 | DIAGNOSTIC IMAGING REPORT ---
CHEST ONE VIEW PORTABLE HISTORY: hypoxia COMPARISON: Chest 10/20/2016. FINDINGS: There is again noted a large hiatus hernia. There are low lung volumes. The heart is stable in size. No pleural effusions. No pneumothorax. No focal lung consolidations to suggest pneumonia. No evidence for pulmonary edema. Stable linear density at the left lung base which favor subsegmental atelectasis or scarring. IMPRESSION: No significant change compared to the prior study. No acute process. Large hiatus hernia is again noted. Electronically signed by: Corey Frias M.D. 11/21/2016 10:42 AM Dictated Date/Time: 11/21/2016 10:41 AM
[2016-11-21 10:46] LABS: CALCIUM 8.4 mg/dl (8.5-10.1); CKMB/CK RATIO 1.5 (0-3.0); CREATININE 1.4 mg/dl (0.60-1.20); POTASSIUM 4.4 mmol/L (3.5-5.1); THYROID STIMULATING HORMONE 3.13 uIu/ml (0.300-4.500)
[2016-11-21] MEDS: ONDANSETRON INJ 2 MG/ML 2 ML VIAL IV PRN (11:31)
--- NOTE | 2016-11-21 12:06 | ECHOCARDIOGRAM REPORT ---
*NOTICE TO RECEIVING [employer] This information is strictly Confidential and protected under [place] law. [place] law prohibits you from making any further disclosure of this information unless further disclosure is expressly permitted by the written consent of the person to whom it pertains or is authorized by law. A general authorization for the release of medical or other information is not sufficient for this purpose. Hospital accepts no responsibility if the information is made available to any other person, INCLUDING THE PATIENT. Interpretation Summary * Name: CHIKA KIRK Study Date: 11/21/2016 10:52 AM BP: 141/69 mmHg * Patient Location: .2E\S\E211\S\1 HR: 49 * : 1945 (M/d/yyy) Gender: Female Height: 61 in * Age: 71 yrs Ethnicity: [place] Weight: 204 lb * Ordering Physician: Saul Forbes * Referring Physician: Cuba Simental D.O. * Performed By: Kylie Haney RCS * * Reason For Study: BRADYCARDIA * BSA: 1.9 m2 * -- Conclusions -- * 1. Normal LV size. Moderate concentric LVH. * 2. Normal LV systolic function. LVEF 55-60%. No regional wall motion abnormalities. * 3. Grade I diastolic dysfunction. * 4. Normal RV size and function. * 5. Mild aortic valve sclerosis without stenosis. * 6. Dilated IVC suggestive of elevated RA pressure (Est 15 mmHg). * 7. No prior studies for comparison. Procedure Details * A complete two-dimensional transthoracic echocardiogram was performed (2D, M-mode, Doppler and color flow Doppler). Left Ventricle * The left ventricle is grossly normal size. * There is moderate concentric left ventricular hypertrophy. * Ejection Fraction = 55-60%. Right Ventricle * The right ventricle is grossly normal size. * The right ventricular systolic function is normal as assessed by tricuspid annular plane systolic excursion (TAPSE) (normal >1.5 cm). Atria * The left atrium is mildly dilated. * Right atrial size is normal. * No ASD detected; PFO is not assessed. Mitral Valve * The mitral valve leaflets appear thickened, but open well. * There is mild mitral annular calcification. * There is no mitral valve stenosis. * There is trace mitral regurgitation. Tricuspid Valve * The tricuspid valve is not well visualized, but is grossly normal. * There is no tricuspid stenosis. * Significant tricuspid regurgitation is absent. Aortic Valve * The aortic valve opens well. * Aortic valve sclerosis mild, without significant aortic valvular stenosis. * There is no significant aortic regurgitation. Pulmonic Valve * The pulmonary valve is inadequately visualized, but the Doppler data is adequate for interpretation. * Pulmonic stenosis is absent. * There is no significant pulmonary regurgitation. Great Vessels * The aortic root and proximal ascending aorta are normal sized. Pericardium/Pleural * There is no pericardial effusion. Great Vessels * Dilated inferior vena cava with reduced collapsability with sniff indicates an elevated right atrial pressure of 15 mmHg Left Ventricular Diastolic Function * Grade I diastolic dysfunction, (abnormal relaxation pattern). MMode 2D Measurements and Calculations IVSd 1.4 cm IVSs 1.5 cm LVIDd 4.1 cm LVIDs 3.1 cm LVPWd 1.4 cm LVPWs 1.5 cm IVS/LVPW 0.95 FS 24.4 % EDV(Teich) 75.2 ml ESV(Teich) 38.5 ml EF(Teich) 48.9 % EDV(cubed) 70.1 ml ESV(cubed) 30.3 ml EF(cubed) 56.7 % % IVS thick 12.3 % % LVPW thick 0.89 % LV mass(C)d 219.8 grams LV mass(C)dI 115.4 grams/m\S\2 LV mass(C)s 165.3 grams LV mass(C)sI 86.8 grams/m\S\2 SV(Teich) 36.8 ml SI(Teich) 19.3 ml/m\S\2 SV(cubed) 39.8 ml SI(cubed) 20.9 ml/m\S\2 Ao root diam 3.5 cm Ao root area 9.7 cm\S\2 ACS 1.6 cm LVOT diam 1.9 cm LVOT area 2.8 cm\S\2 LVAd ap4 29.1 cm\S\2 LVLd ap4 7.4 cm EDV(MOD-sp4) 92.8 ml EDV(sp4-el) 96.9 ml LVAs ap4 18.0 cm\S\2 LVLs ap4 6.1 cm ESV(MOD-sp4) 43.4 ml ESV(sp4-el) 44.9 ml EF(MOD-sp4) 53.2 % EF(sp4-el) 53.7 % LVAd ap2 25.9 cm\S\2 LVLd ap2 7.4 cm EDV(MOD-sp2) 75.5 ml EDV(sp2-el) 77.7 ml LVAs ap2 16.6 cm\S\2 LVLs ap2 6.2 cm ESV(MOD-sp2) 36.1 ml ESV(sp2-el) 37.3 ml EF(MOD-sp2) 52.2 % EF(sp2-el) 51.9 % LVLd %diff -0.78 % EDV(MOD-bp) 84.3 ml LVLs %diff 2.4 % ESV(MOD-bp) 39.1 ml EF(MOD-bp) 53.6 % SV(MOD-sp4) 49.4 ml SI(MOD-sp4) 25.9 ml/m\S\2 SV(MOD-sp2) 39.4 ml SI(MOD-sp2) 20.7 ml/m\S\2 SV(MOD-bp) 45.1 ml SI(MOD-bp) 23.7 ml/m\S\2 SV(sp4-el) 52.0 ml SI(sp4-el) 27.3 ml/m\S\2 SV(sp2-el) 40.3 ml SI(sp2-el) 21.2 ml/m\S\2 Doppler Measurements and Calculations MV E max aureliano 106.2 cm/sec MV A max aureliano 120.8 cm/sec MV E/A 0.88 MV P1/2t max aureliano 128.3 cm/sec MV P1/2t 85.6 msec MVA(P1/2t) 2.6 cm\S\2 MV dec slope 438.8 cm/sec\S\2 MV dec time 0.20 sec Ao V2 max 173.0 cm/sec Ao max PG 12.0 mmHg Ao max PG (full) 8.0 mmHg VERNON(V,A) 1.6 cm\S\2 VERNON(V,D) 1.6 cm\S\2 LV V1 max PG 3.9 mmHg LV V1 max 99.2 cm/sec
--- NOTE | 2016-11-21 15:00 | DIAGNOSTIC IMAGING REPORT ---
NUCLEAR MEDICINE VENTILATION/PERFUSION SCAN CLINICAL HISTORY: Hypoxia. Bradycardia. COMPARISON: Chest radiograph November 21, 2016. TECHNIQUE: For the ventilation portion of this exam, 29 mCi of DTPA was inhaled at 3:05 PM on November 21, 2016. Immediately following inhalation, imaging of the chest was carried out in the anterior, posterior, left lateral, right lateral, LPO, RPO, UMANG and RUSSO projections. For the perfusion portion of exam, 6.1 mCi of technetium 99m MAA was injected IV at 2:30 PM on November 21, 2016. Immediately following injection, imaging of the chest was carried out in the same projections. FINDINGS: Central radiotracer deposition on the ventilation portion of this exam suggests chronic lung disease. No mismatched defects are identified. Apparent areas of diminished perfusion are matched on the ventilation images. This study is considered low probability for pulmonary embolus. IMPRESSION: 1. Low probability for pulmonary embolus. 2. Central radiotracer deposition on the ventilation portion of the study which suggests chronic lung disease. Electronically signed by: Bhavik Hanley M.D. 11/21/2016 2:58 PM Dictated Date/Time: 11/21/2016 2:55 PM
[2016-11-21] MEDS: OXYCODONE HCL IR 5 MG TAB (IMMEDIATE RELEASE) PO PRN (15:06)
[2016-11-21 15:39] LABS: CKMB/CK RATIO 1.8 (0-3.0)
--- NOTE | 2016-11-21 16:44 | Cardiology Consultation ---
Cardiology Consultation Date of Consultation: Nov 21, 2016. Requesting Physician: Dr. Forbes Reason for Consultation: Bradycardia Pt evaluation today including: conversation w/ patient, conversation w/ family , physical exam, lab review, review of studies, review of inpatient medication list, conversation w/ attending History of Present Illness This is a very pleasant 71-year-old woman who has a history of hypothyroidism, hypertension and degenerative joint disease. She underwent a left total knee arthroplasty on 11/18/2016, she was being set up to go home when she developed symptoms of dizziness and was felt to be hypoxic. She was also noted to be bradycardic although she has a long history of bradycardia. Her lowest heart rate is reported at 43 bpm, on an electrocardiogram 10/20/2016 her heart rate was 39. She reports that she has had a long history of bradycardia. She says that even when she was younger heart rate was slow, although she can't remember how slow. Her daughter also notes that her pulse is low as well. She has never been bothered by this, although she does get occasional dizziness but it is not very bothersome and is quite infrequent. She is on atenolol 25 mg daily for hypertension has been for some time. Her last dose of atenolol was 11/20/2016. Currently she feels quite well, she is in bed and her family is visiting. She has no lightheadedness or dizziness, no chest discomfort and no complaints. Past Medical/Surgical History PAST MEDICAL HISTORY: 1. Hypertension. 2. High cholesterol. 3. Hypothyroidism. 4. GERD. Social History Smoking Status: Never Smoker History of Alcohol Use: Yes (3-4 DRINKS PER WEEK) Review of Systems Constitutional: No fever, No weakness, No weight loss Respiratory: No cough, No dyspnea on exertion, No shortness of breath, No wheezing Cardiac: + see HPI, No PND, No chest pain, No edema, No orthopnea, No palpitations Abdomen: No GI bleeding, No diarrhea, No nausea, No pain, No vomiting Female : No problem reported Neurologic: No balance problems, No numbness/tingling, No paralysis, No weakness Heme: No abnormal bleeding/bruising, No clotting problems Endo: No fatigue Skin: No problem reported All Other Systems: Reviewed and Negative Allergies Coded Allergies: Oxycodone (Verified Adverse Reaction, Severe, nausea, vomitting, weakness , 11/21/16) Medications Current Inpatient Medications Medications (Trade) Dose Ordered Sig/Jt Route Start Time Stop Time Status Last Admin Dose Admin Celecoxib (CeleBREX CAP) 200 mg BID PO 11/19/16 21:00 12/19/16 20:59 11/20/16 20:56 200 MG Oxycodone HCl (Roxicodone Immediate Rel Tab) 1 TABLET FOR PAIN RATING... Q4H PRN PO 11/18/16 15:30 12/02/16 15:29 11/21/16 15:06 5 MG Acetaminophen (Tylenol Tab) 1,000 mg Q8H PO 11/18/16 22:00 12/18/16 21:59 11/21/16 15:03 1,000 MG Magnesium Hydroxide (Milk Of Magnesia Susp) 30 ml Q6H PRN PO 11/18/16 15:30 12/18/16 15:29 Bisacodyl (Dulcolax Supp) 10 mg DAILY PRN MI 11/18/16 15:30 12/18/16 15:29 Sodium Biphosphate/ Sodium Phosphate (Fleet Enema) 132 ml DAILY PRN MI 11/18/16 15:30 12/18/16 15:29 Senna (Senokot Tab) 17.2 mg HS PO 11/18/16 21:00 12/18/16 20:59 11/20/16 20:55 17.2 MG Docusate Sodium (coLACE CAP) 100 mg BID PO 11/18/16 21:00 12/18/16 20:59 11/21/16 09:52 100 MG Diphenhydramine HCl (Benadryl Cap) 25 mg Q8H PRN PO 11/18/16 15:30 12/18/16 15:29 Al Hydrox/Mg Hydrox/Simethicone (Maalox Max Susp) 15 ml Q4H PRN PO 11/18/16 15:30 12/18/16 15:29 11/19/16 17:23 15 ML Multivitamins (Multivitamin Tab) 1 tab QAM PO 11/19/16 09:00 12/19/16 08:59 11/20/16 08:59 1 TAB Ondansetron HCl (Zofran Inj) 4 mg Q6H PRN IV 11/18/16 15:30 12/18/16 15:29 11/21/16 11:31 4 MG Ferrous Gluconate (Ferrous Gluconate Tab) 324 mg TIDM PO 11/18/16 17:45 12/18/16 17:59 11/19/16 08:49 324 MG Pantoprazole Sodium (Protonix Tab) 40 mg QAM PO 11/19/16 09:00 12/19/16 08:59 11/21/16 09:52 40 MG Aspirin (Ecotrin Tab) 81 mg BID PO 11/18/16 21:00 12/18/16 20:59 11/21/16 09:53 81 MG Atenolol (Tenormin Tab) 25 mg QAM PO 11/19/16 09:00 12/19/16 08:59 11/19/16 08:46 25 MG Levothyroxine Sodium (Synthroid Tab) 50 mcg DAILYBB PO 11/19/16 06:00 12/19/16 05:59 11/21/16 06:05 50 MCG Potassium Chloride (Klor-Con M10) 10 meq QAM PO 11/19/16 09:00 12/19/16 08:59 11/21/16 09:37 10 MEQ Simvastatin (Zocor Tab) 40 mg QPM PO 11/18/16 21:00 12/18/16 20:59 11/20/16 20:54 40 MG Triamterene/HCTZ (Dyazide 37.5/25 Mg Cap) 1 cap QAM PO 11/19/16 09:00 12/19/16 08:59 11/20/16 08:59 1 CAP Miscellaneous Information (Order Awaiting Action) 1 ea QS N/A 11/19/16 00:00 12/19/16 00:00 Cholecalciferol (Vitamin D Tab) 5,000 inter.unit QAM PO 11/19/16 09:00 12/19/16 08:59 11/20/16 08:59 5,000 INTER.UNIT Miscellaneous Information (Order Awaiting Action) 1 ea QS N/A 11/19/16 00:00 12/19/16 00:00 Oxybutynin Chloride (Ditropan-Xl Tab) 10 mg QAM PO 11/19/16 09:00 12/19/16 08:59 11/21/16 09:52 10 MG Morphine Sulfate (MoRPHine SULFATE INJ) 2 mg Q4HWA PRN IV 11/18/16 17:45 12/02/16 17:44 Morphine Sulfate (MoRPHine SULFATE INJ) 4 mg Q4HWA PRN IV 11/18/16 17:45 12/02/16 17:44 Morphine Sulfate (MoRPHine SULFATE INJ) 6 mg Q4HWA PRN IV 11/18/16 17:45 12/02/16 17:44 Tramadol HCl (Ultram Tab) @ Q4H PRN PO 11/20/16 13:45 12/20/16 13:44 11/20/16 22:34 100 MG Hydralazine HCl (HydrALAZINE INJ) 20 mg Q6 PRN IV. 11/21/16 09:00 12/21/16 08:59 Physical Exam Vital Signs Past 12 Hours Date Time Temp Pulse Resp B/P Pulse Ox O2 Delivery O2 Flow Rate FiO2 11/21/16 16:18 36.7 60 17 128/79 97 Room Air 11/21/16 12:00 Nasal Cannula 11/21/16 11:27 36.6 60 20 138/75 95 Room Air 11/21/16 09:53 47 22 141/69 98 Nasal Cannula 1.0 11/21/16 09:45 Nasal Cannula 11/21/16 09:29 36.5 47 15 99 4.0 11/21/16 09:23 36.5 47 15 151/68 99 Nasal Cannula 4.0 11/21/16 08:24 45 98 Nasal Cannula 4.0 11/21/16 08:14 93 4.0 11/21/16 08:13 91 Nasal Cannula 2.0 11/21/16 08:10 46 18 129/84 86 Room Air 11/21/16 07:26 36.5 54 18 109/64 92 Room Air Constitutional: General Apperance: heathly-appearing Level of Distress: NAD Psychiatric: Mental Status: active & alert Head: normocephalic Eyes: EOM: EOMI ENMT: normal ENT inspection, hearing grossly normal Neck: supple, no masses Lungs: Respiratory effort: no dyspnea, good air movement Auscultation: breath sounds normal, no wheezing Cardiovascular: Heart Auscultation: RRR, no murmurs, no rubs, no gallops Peripheral Pulses: Bruits: none appreciated Abdomen: Bowel Sounds: normal Inspection & Palpation: soft, no tenderness, guarding & rebound, no masses Musculoskeletal: normal strength (5/5 throughout) Extremities: no edema Neurologic: Cranial Nerves: grossly intact Sensation: grossly intact Data Laboratory Results: Last 24 Hours Test 11/21/16 08:50 11/21/16 09:30 11/21/16 14:56 Creatine Kinase MB Ratio 1.5 1.8 Prothrombin Time 10.9 SECONDS Prothromb Time International Ratio 1.0 Activated Partial Thromboplast Time 27.9 SECONDS Partial Thromboplastin Ratio 1.1 D-Dimer 570 ug/L FEU Sodium Level 143 mmol/L Potassium Level 4.4 mmol/L Chloride Level 106 mmol/L Carbon Dioxide Level 31 mmol/L Anion Gap 6.0 mmol/L Blood Urea Nitrogen 21 mg/dl Creatinine 1.40 mg/dl Est Creatinine Clear Calc Drug Dose 38.3 ml/min Estimated GFR () 43.7 Estimated GFR (Non- 37.7 BUN/Creatinine Ratio 15.0 Random Glucose 109 mg/dl Calcium Level 8.4 mg/dl Total Bilirubin 0.5 mg/dl Aspartate Amino Transf (AST/SGOT) 7 U/L Alanine Aminotransferase (ALT/SGPT) 12 U/L Alkaline Phosphatase 83 U/L Total Creatine Kinase 62 U/L 61 U/L Creatine Kinase MB 0.9 ng/ml 1.1 ng/ml Troponin I 0.015 ng/ml < 0.015 ng/ml Total Protein 5.8 gm/dl Albumin 2.9 gm/dl Globulin 2.9 gm/dl Albumin/Globulin Ratio 1.0 Thyroid Stimulating Hormone (TSH) 3.130 uIu/ml Imaging: An echocardiogram today shows normal left ventricular size and function with mild left ventricular hypertrophy. Right ventricular function appears normal although that pressure in the IVC is felt to be elevated. EKG: Sinus bradycardia with a heart rate of 43 bpm, poor R-wave progression and nonspecific anterior ST-T abnormalities. These precordial abnormalities could be lead placement. Telemetry reviewed: Sinus bradycardia with a heart rate initially in the 40s, over the last several hours her heart rate has been gradually climbing and is now around 60-70 bpm. Assessment & Plan #1. Bradycardia: It sounds as though she has a long history of bradycardia, which her daughter reports she has as well. It is possible that she has a congenital low heart rate or just a heart rate at the lower limits of normal, or she could have developed early sick sinus syndrome with sinus bradycardia. For the most part she is asymptomatic but she does have intermittent lightheadedness. It is unlikely that she would need a pacemaker although that would be the treatment for symptomatic bradycardia if it does not reverse with elimination of beta-blockade. Already her heart rate seems to be increasing, which may be a medication effect although she is on a low dose. I would therefore recommend continuing to monitor her without atenolol, if she has symptoms which we believe are bradycardic then we would need to consider pacemaker placement. I would avoid drugs with negative chronotropic effect. #2. Dilated for vena cava: There is no clear reason for this, she may have elevated pressures but her right ventricular function appears normal, she does not have anything to suggest a pulmonary embolism (her ventilation/perfusion scan is negative, her oxygenation is now normal). I would not further evaluate this. #3. Electrocardiographic abnormalities in the precordium: I think this is probably lead placement, she did have a stress test on 05/16/2016 (preop) where she had no evidence of coronary artery disease. Her enzymes are negative and there are no wall motion abnormalities on echocardiography. Unless things change I would not pursue this further. Thank you for allowing me to participate in her care.
[2016-11-21] MEDS: SENNA 8.6 MG TAB PO SCH (20:54)
[2016-11-21] MEDS: SIMVASTATIN 40 MG TAB PO SCH (20:56)
[2016-11-21 23:13] LABS: CKMB/CK RATIO 1.5 (0-3.0)
[2016-11-22] VITALS (10 sets, daily range): BP systolic 103–145; BP diastolic 65–83; PULSE 60–76; TEMP 36.4–37.2; O2SAT 90–95
[2016-11-22] MEDS: OXYCODONE HCL IR 5 MG TAB (IMMEDIATE RELEASE) PO PRN ×3 (00:10→20:31)
[2016-11-22] MEDS: ACETAMINOPHEN 500 MG TAB PO SCH ×3 (06:02→20:32)
[2016-11-22] MEDS: LEVOTHYROXINE 50 MCG TAB PO SCH (06:02)
--- NOTE | 2016-11-22 07:43 | Orthopedic Progress Note ---
Orthopedic Progress Note Date of Service Nov 22, 2016. Subjective Post OP Day: 4 Reports: feeling well Objective calves soft nontender, N/V intact, dressing C/D/I, toes mobile Date Time Temp Pulse Resp B/P Pulse Ox O2 Delivery O2 Flow Rate FiO2 11/22/16 04:00 94 Room Air 11/22/16 03:52 37.2 69 16 103/67 94 Room Air 11/22/16 00:03 37.2 69 22 129/69 91 Room Air 11/22/16 00:01 90 Room Air 11/21/16 20:00 36.8 75 17 129/71 95 Room Air 11/21/16 20:00 95 Room Air 11/21/16 16:18 36.7 60 17 128/79 97 Room Air 11/21/16 16:00 Nasal Cannula 11/21/16 12:00 Nasal Cannula 11/21/16 11:27 36.6 60 20 138/75 95 Room Air 11/21/16 09:53 47 22 141/69 98 Nasal Cannula 1.0 11/21/16 09:45 Nasal Cannula 11/21/16 09:29 36.5 47 15 99 4.0 11/21/16 09:23 36.5 47 15 151/68 99 Nasal Cannula 4.0 11/21/16 08:24 45 98 Nasal Cannula 4.0 11/21/16 08:14 93 4.0 11/21/16 08:13 91 Nasal Cannula 2.0 11/21/16 08:10 46 18 129/84 86 Room Air Laboratory Results 24 Hours: Test 11/21/16 09:30 Prothromb Time International Ratio 1.0 Prothrombin Time 10.9 SECONDS Assessment & Plan Assessment: 71 yo female stable POD #4 s/p Left TKA -PT/OT -dvt proph with GLENIS/SCD/ASA plan for d/c home with HHPT when stable Bradycardia- states she normally has a lower HR, she remains asymptomatic. will cont to observe Plan: 1. Med management 2. DVT prophylaxis- ASA, TEDs, SCDs 3. PT/OT per medicine 4. D/C planning- home w/ HH when OK with medicine Discharge Planning Discharge Planning: home with home health DVT Prophylaxis: TEDs, SCDs, ASA (ASA 81mg po bid x 1month) Therapy: Physical Therapy
[2016-11-22] MEDS: FERROUS GLUCONATE 324 MG TAB PO SCH ×3 (08:45→16:38)
[2016-11-22] MEDS: DOCUSATE SODIUM 100 MG CAP PO SCH ×2 (08:46→20:32)
[2016-11-22] MEDS: CeleBREX 200 MG CAP PO SCH ×2 (08:46→20:34)
[2016-11-22] MEDS: OXYBUTYNIN CHLORIDE 5 MG TABCR PO SCH (08:46)
[2016-11-22] MEDS: POTASSIUM CHLORIDE 10 MEQ TABCR PO SCH (08:47)
[2016-11-22] MEDS: TRIAMTERENE/HCTZ 37.5/25MG CAP PO SCH (08:47)
[2016-11-22] MEDS: ASPIRIN 81 MG ECTAB PO SCH ×2 (08:47→20:32)
[2016-11-22] MEDS: PANTOprazole SOD 40 MG TAB PO SCH (08:48)
[2016-11-22] MEDS: MULTIVITAMIN TAB PO SCH (08:48)
[2016-11-22] MEDS: CHOLECALCIFEROL 1000 INTER.UNIT TAB PO SCH (08:50)
--- NOTE | 2016-11-22 09:45 | Progress Note ---
Subjective Date of Service: Nov 22, 2016. Subjective Pt evaluation today including: conversation w/ patient, conversation w/ family , physical exam, chart review, lab review, review of studies, conversation w/ lending consultant, review of inpatient medication list Voiding: no voiding problems Still feeling several times uncomfortable such as possible dizziness and nausea when out of bed and up, now is sitting up in a chair feel okay but have some nausea and mild dizziness, heart rate is good, blood pressure is good, monitor was uneventful Review of Systems Constitutional: + fatigue, + weakness, No chills, No fever, No problem reported , No sweats, No weight loss Eyes: No diplopia, No discharge, No eye pain, No redness, No worsening of vision ENT: No dental problems, No hearing loss, No nasal symptoms, No sore throat, No tinnitus, No trouble swallowing, No unusual epistaxis Respiratory: No cough, No dyspnea at rest, No dyspnea on exertion, No hemoptysis, No shortness of breath, No sputum, No wheezing Cardiac: No PND, No chest pain, No claudication, No edema, No orthopnea, No palpitations Abdomen: No constipation, No diarrhea, No nausea, No pain, No vomiting Musculoskeletal: No calf pain, No joint pain, No muscle pain, No swelling Female : No abnormal vaginal bleeding, No dysuria, No hematuria, No incontinence, No urinary frequency, No vaginal discharge Neurologic: No balance problems, No memory loss, No numbness/tingling, No paralysis, No vertigo, No weakness Psychiatric: No anhedonism, No anxiety, No depression symptoms, No insomnia, No substance abuse Heme: No abnormal bleeding/bruising, No clotting problems, No night sweats, No swollen lymph nodes Endo: No excessive thirst, No excessive urination, No fatigue Skin: No bleeding, No color change, No itch, No new/changing skin lesions, No rash Objective Vital Signs Date Time Temp Pulse Resp B/P Pulse Ox O2 Delivery O2 Flow Rate FiO2 11/22/16 07:49 36.4 66 9 135/70 94 Room Air 11/22/16 04:00 94 Room Air 11/22/16 03:52 37.2 69 16 103/67 94 Room Air 11/22/16 00:03 37.2 69 22 129/69 91 Room Air 11/22/16 00:01 90 Room Air 11/21/16 20:00 36.8 75 17 129/71 95 Room Air 11/21/16 20:00 95 Room Air 11/21/16 16:18 36.7 60 17 128/79 97 Room Air 11/21/16 16:00 Nasal Cannula 11/21/16 12:00 Nasal Cannula 11/21/16 11:27 36.6 60 20 138/75 95 Room Air 11/21/16 09:53 47 22 141/69 98 Nasal Cannula 1.0 11/21/16 09:45 Nasal Cannula Physical Exam General Appearance: WD/WN, no apparent distress Eyes: normal inspection, PERRL, EOMI, sclerae normal ENT: normal ENT inspection, hearing grossly normal, pharynx normal Neck: supple, no adenopathy, thyroid normal, no JVD, no carotid bruits, trachea midline Respiratory/Chest: chest non-tender, lungs clear, normal breath sounds, no respiratory distress, no accessory muscle use Cardiovascular: regular rate, rhythm, no edema, no gallop, no JVD, no murmur Abdomen: normal bowel sounds, non tender, soft, no organomegaly, no pulsatile mass Extremities: non-tender, normal inspection, no pedal edema, no calf tenderness , normal capillary refill, pelvis stable, + pertinent finding (left knee in dress) Neurologic/Psychiatric: publishing editor II-XII nml as tested, no motor/sensory deficits, alert, normal mood/affect, oriented x 3 Skin: normal color, warm/dry, no rash Lymphatic: no adenopathy Laboratory Results Last 24 Hours Test 11/21/16 14:56 11/21/16 22:37 Total Creatine Kinase 61 U/L 48 U/L Creatine Kinase MB 1.1 ng/ml 0.7 ng/ml Creatine Kinase MB Ratio 1.8 1.5 Troponin I < 0.015 ng/ml < 0.015 ng/ml Assessment and Plan A 71-year-old white female admitted to Dr. Simental service on 11/18/2016, patient had to left knee arthroplasty, On post op day 2 patient was consulted to hospitalist service because of bradycardia hypoxia and dizziness Left knee status post total arthroplasty with history of degenerative joint disease. POD #3 , managed by the primary team. Others that need to be managed by the primary team include pain control, PT/OT, DVT prophylaxis, and discharge plan. Episodes of bradycardia and hypoxia: has bradycardia since admission. Heart rate was down to 48. beta blockers was discontinued . Heart rate and blood pressure is good Episodes of hypoxia during the bradycardia event differential diagnosis include acute deep vein thrombosis and pulmonary embolism. Other differential diagnosis include , syncope vasovagal, acute coronary syndrome, acute deep vein, thrombosis or pulmonary embolism. EKG was check no us no ST-T phase changes, V/Q scan showed low probability of acute PE, patient's oxygenation is improved and hypoxia resolved, currently is 95% pulse ox in room air. History of Hypertension, has stop her beta ajay, check monitor blood pressure closely, use hydralazine as needed for now, Does not need any new blood pressure medicine for now , because most of her blood pressure has been less than 130 Possible UTI per urinary study, patient is asymptomatic, she got 1 dose of antibiotic preop, I will give Keflex for 3 days mild dizziness and nausea symptom, they are very unspecific, and however I will check an orthostatic, carotid Doppler ultrasound, and head CT Deep venous thrombosis prophylaxis will be continued for now on aspirin 81 mg p.o. b.i.d. Discussed with cardiology and primary team Continued [facility] stay due to: home environment unsafe for pt Discharge planning: home
[2016-11-22] MEDS ORDERED: CEPHALEXIN MONOHYDRATE 500 MG CAP PO ONE (10:00)
--- NOTE | 2016-11-22 10:48 | DIAGNOSTIC IMAGING REPORT ---
CT SCAN OF THE BRAIN WITHOUT IV CONTRAST CLINICAL HISTORY: Dizziness. COMPARISON STUDY: No priors. TECHNIQUE: Unenhanced axial CT scan of the brain is performed from the vertex to the skull base. CT DOSE: 537.48 mGy.cm FINDINGS: Brain parenchyma: There are age-related involutional changes noting mild subcortical and periventricular microangiopathic change. There is no hemorrhage, mass effect, or evidence of acute territorial ischemia by CT criteria. Gutierrez-white matter is preserved. No extra-axial fluid collection is seen. Ventricles, sulci, cisterns: Prominent secondary to involutional change. Intracranial vasculature: There is atherosclerotic calcification of the cavernous carotid and vertebral arteries. Calvarium: Unremarkable. Sinuses and mastoids: The visualized paranasal sinuses are clear. The mastoid air cells are well pneumatized. Orbits: The bony orbits are grossly intact. There are bilateral ocular lens implants. IMPRESSION: There is no hemorrhage, mass effect, or evidence of acute territorial ischemia by CT criteria. Electronically signed by: Stewart Hester M.D. 11/22/2016 10:46 AM Dictated Date/Time: 11/22/2016 10:45 AM
--- NOTE | 2016-11-22 11:27 | DIAGNOSTIC IMAGING REPORT ---
ULTRASOUND OF THE CAROTID ARTERIES CLINICAL HISTORY: Dizziness. COMPARISON STUDY: No priors. TECHNIQUE: Real-time, grayscale, and color Doppler sonography of the carotid arteries is performed. Images are reviewed in the transverse and longitudinal planes. FINDINGS: Blood pressures were not assessed due to the presence of IV catheters. The carotid arteries are patent bilaterally and demonstrate antegrade flow. There is no significant atherosclerotic plaque identified. Normal doppler arterial waveforms are seen throughout. The distal right internal carotid artery was not well visualized. Velocity measurements are listed below. Common carotid peak systolic velocity (cm/sec): RIGHT: 69 LEFT: 74 ICA proximal peak systolic velocity (cm/sec): RIGHT: 42 LEFT: 56 ICA mid peak systolic velocity (cm/sec): RIGHT: 49 LEFT: 64 ICA distal peak systolic velocity (cm/sec): RIGHT: LEFT: 65 ICA/CC peak systolic ratio: RIGHT: 0.7 LEFT: 0.9 Antegrade flow was shown in the vertebral arteries. The external carotid arteries are patent. Small cervical lymph nodes are incidentally noted. IMPRESSION: 1. There is no sonographic evidence of hemodynamically significant stenosis in the right or left carotid arterial system. 2. Antegrade flow is shown in the vertebral arteries. Electronically signed by: Stewart Hester M.D. 11/22/2016 11:25 AM Dictated Date/Time: 11/22/2016 11:22 AM
--- NOTE | 2016-11-22 11:37 | Cardiology Follow-Up ---
Subjective Date of Service: Nov 22, 2016. Pt evaluation today including: conversation w/ patient, conversation w/ family , physical exam, lab review, review of inpatient medication list History of Present Illness This is a very pleasant 71-year-old woman who has a history of hypothyroidism, hypertension and degenerative joint disease. She underwent a left total knee arthroplasty on 11/18/2016, she was being set up to go home when she developed symptoms of dizziness and was felt to be hypoxic. She was also noted to be bradycardic although she has a long history of bradycardia. Her lowest heart rate is reported at 43 bpm, however on an electrocardiogram 10/20/2016 her heart rate was 39. She reports that she has had a long history of bradycardia. She says that even when she was younger heart rate was slow, although she can't remember how slow. Her daughter also notes that her pulse is low as well. She has never been bothered by this, although she does get occasional dizziness but it is not very bothersome and is quite infrequent. She is on atenolol 25 mg daily for hypertension has been for some time. Her last dose of atenolol was 11/20/2016. Currently continues to have dizziness and nausea, she is in bed and her family is visiting. She thinks it might be her meds. Social History Smoking Status: Never Smoker History of Alcohol Use: Yes (3-4 DRINKS PER WEEK) Review of Systems Respiratory: No cough, No dyspnea at rest, No dyspnea on exertion, No hemoptysis, No shortness of breath, No sputum, No wheezing Cardiac: No PND, No chest pain, No claudication, No edema, No orthopnea, No palpitations Dizziness and nausea Medications Cardiovascular: Item Value Date Time Hydralazine HCl 20 mg 11/21/16 0900 (HydrALAZINE INJ) Q6 PRN/IV. Triamterene/HCTZ 1 cap 11/19/16 0900 (Dyazide 37.5/25 QAM/PO 11/22/16 0847 Mg Cap) Aspirin 81 mg 11/18/16 2100 (Ecotrin Tab) BID/PO 11/22/16 0847 Simvastatin 40 mg 11/18/162099 (Zocor Tab) QPM/PO 11/21/162055 Objective Vital Signs Past 12 Hours Date Time Temp Pulse Resp B/P Pulse Ox O2 Delivery O2 Flow Rate FiO2 11/22/16 07:49 36.4 66 9 135/70 94 Room Air 11/22/16 04:00 94 Room Air 11/22/16 03:52 37.2 69 16 103/67 94 Room Air 11/22/16 00:03 37.2 69 22 129/69 91 Room Air 11/22/16 00:01 90 Room Air Last Recorded Weight-Kilograms: 96.200 Intake & Output 8-Hour Column 11/21/16 11/22/16 11/22/16 16:00 00:00 08:00 Intake Total 200 ml 100 ml Balance 200 ml 100 ml 24-Hour Column 11/22/16 08:00 Intake Total 300 ml Balance 300 ml Physical Exam Constitutional: General Apperance: heathly-appearing Level of Distress: NAD Lungs: Respiratory effort: no dyspnea, good air movement Auscultation: breath sounds normal, no wheezing Cardiovascular: Heart Auscultation: RRR, no murmurs, no rubs, no gallops Peripheral Pulses: Bruits: none appreciated Extremities: no edema Data Laboratory Results: Last 24 Hours Test 11/21/16 14:56 11/21/16 22:37 Total Creatine Kinase 61 U/L 48 U/L Creatine Kinase MB 1.1 ng/ml 0.7 ng/ml Creatine Kinase MB Ratio 1.8 1.5 Troponin I < 0.015 ng/ml < 0.015 ng/ml Telemetry reviewed: HR generally in the 50s, increased off Atenolol Assessment and Plan #1. Bradycardia: It sounds as though she has a long history of bradycardia, which her daughter reports she has as well. It is possible that she has a congenital low heart rate or just a heart rate at the lower limits of normal, or she could have developed early sick sinus syndrome with sinus bradycardia. For the most part she is asymptomatic but she does have intermittent lightheadedness. It is unlikely that she would need a pacemaker although that would be the treatment for symptomatic bradycardia if it does not reverse with elimination of beta-blockade. Her HR has increased off Atenolol, her BP is OK currently. I would avoid drugs with negative chronotropic effect. I doubt her current dizziness and nausea is cardiovascular in origin. #2. Dilated for vena cava: There is no clear reason for this, she may have elevated pressures but her right ventricular function appears normal, she does not have anything to suggest a pulmonary embolism (her ventilation/perfusion scan is negative, her oxygenation is now normal). I would not further evaluate this. #3. Electrocardiographic abnormalities in the precordium: I think this is probably lead placement, she did have a stress test on 05/16/2016 (preop) where she had no evidence of coronary artery disease. Her enzymes are negative and there are no wall motion abnormalities on echocardiography. I will repeat the ECG now with her baseline HR. Unless things change I would not pursue this further. Thank you for allowing me to participate in her care.
[2016-11-22] MEDS: CEPHALEXIN MONOHYDRATE 500 MG CAP PO SCH ×3 (13:39→20:32)
--- NOTE | 2016-11-22 15:12 | Discharge Instructions ---
Discharge Instructions Admission Reason for Admission: Left Knee Osteoarthritis Discharge Discharge Diagnosis / Problem: bradycardia from medicine effect Discharge Goals Goal(s): Decrease discomfort, Improve function, Increase independence, Improve disease control, Improve nutritional status, Learn about illness, Diagnostic testing, Therapeutic intervention, Prevent Disease Progression, Specific goals Activity Recommendations Activity Limitations: resume your previous activity (or per instruction from orthopedic) . Instructions / Follow-Up Instructions / Follow-Up Orthopedic you have Left knee status post total arthroplasty with history of degenerative joint disease. POD #3 , for the specific discharge instruction should follow-up with the Dr. Simental you have Episodes of bradycardia , very from your current medication his name was Atenolol, which was discontinued . I'm not giving you any new blood pressure medication, however like I mentioned to you, you need to check blood pressure 2 time a day, writing down the number , and bring the number to your family doctor in the follow-up visit in 5-7 days. Call your PCP if systolic blood pressure more than 180 Possible UTI per urinary study, I'm giving you antibiotic Keflex for 3 days, You still have mild dizziness and nausea symptom, I would like to recommend you to follow-up with PCP or call PCP if have any questions, fall precautions - you need to follow up with your primary care physician in 1 week, - take medication as instructed, never overdose or any misuse, or take with alcohol, because misuse of medicine may cause organ damage or , call your primary care physician if have questions of medicaitons. - call your primary care physician OR go to local emergency room if has any fever/chill, chest pain, shortness of breathing, nausea/vomiting/abdominal pain , facial droop/slurry speech/local weakness, or if has any questions. - fall precaution - diet as instructed - you need to follow up with your subspecialist - you should understand that it is important to follow up the above instruction , and "not following the above instruction" may cause delayed or missed care of your medical conditions which may cause permanent organ damage and even . Current Hospital Diet Patient's current hospital diet: Regular Diet Discharge Diet Recommended Diet: AHA Diet (Heart Healthy) Procedures Procedures Performed: Left Total Knee Arthroplasty Pending Studies Studies pending at discharge: no Laboratory Results Hemoglobin A1c Test 10/20/16 09:17 Range/Units Estimated Average Glucose 123 mg/dl Hemoglobin A1c 5.9 H 4.5-5.6 % Medical Emergencies . Who to Call and When: Medical Emergencies: If at any time you feel your situation is an emergency, please call 911 immediately. . Non-Emergent Contact Non-Emergency issues call your: Primary Care Provider, Specialist . . "Provider Documentation" section prepared by Saul Forbes. VTE Core Measure Inpt VTE Proph given/why not?: Other Anticoagulation (ASA 81mg po bid x 1 month ), T.E.D. Stockings, SCD's
[2016-11-22] MEDS ORDERED: KFL500 PO (15:15)
[2016-11-22] MEDS: SENNA 8.6 MG TAB PO SCH (20:33)
[2016-11-22] MEDS: SIMVASTATIN 40 MG TAB PO SCH (20:33)
[2016-11-23 00:42] VITALS: BP 106/59; PULSE 52; TEMP 37; O2SAT 93
[2016-11-23 04:32] VITALS: BP 131/79; PULSE 57; TEMP 36.9; O2SAT 95
[2016-11-23] MEDS: ACETAMINOPHEN 500 MG TAB PO SCH (06:17)
[2016-11-23] MEDS: LEVOTHYROXINE 50 MCG TAB PO SCH (06:17)
--- NOTE | 2016-11-23 07:52 | Cardiology Follow-Up ---
Subjective Date of Service: Nov 23, 2016. Pt evaluation today including: conversation w/ patient, physical exam, lab review, review of studies, review of inpatient medication list History of Present Illness This is a very pleasant 71-year-old woman who has a history of hypothyroidism, hypertension and degenerative joint disease. She underwent a left total knee arthroplasty on 11/18/2016, she was being set up to go home when she developed symptoms of dizziness and was felt to be hypoxic. She was also noted to be bradycardic although she has a long history of bradycardia. Her lowest heart rate is reported at 43 bpm, however on an electrocardiogram 10/20/2016 her heart rate was 39. She reports that she has had a long history of bradycardia. She says that even when she was younger heart rate was slow, although she can't remember how slow. Her daughter also notes that her pulse is low as well. She has never been bothered by this, although she does get occasional dizziness but it is not very bothersome and is quite infrequent. She was on atenolol 25 mg daily for hypertension has been for some time. Her last dose of atenolol was 11/20/2016. Her electrocardiogram has been a little bit abnormal here, however her echo was negative for wall motion abnormalities, she did develop each, and she has had a negative stress test in May of last year. She does not get chest discomfort. Currently she is feeling quite well, she seems to have less lightheadedness and nausea. Social History Smoking Status: Never Smoker History of Alcohol Use: Yes (3-4 DRINKS PER WEEK) Review of Systems Respiratory: No cough, No dyspnea at rest, No dyspnea on exertion, No hemoptysis, No shortness of breath, No sputum, No wheezing Cardiac: No PND, No chest pain, No claudication, No edema, No orthopnea, No palpitations Dizziness and nausea Medications Cardiovascular: Item Value Date Time Hydralazine HCl 20 mg 11/21/16 0900 (HydrALAZINE INJ) Q6 PRN/IV. Potassium Chloride 10 meq 11/19/16 0900 (Klor-Con M10) QAM/PO 11/22/16 0847 Triamterene/HCTZ 1 cap 11/19/16 0900 (Dyazide 37.5/25 QAM/PO 11/22/16 0847 Mg Cap) Aspirin 81 mg 11/18/162099 (Ecotrin Tab) BID/PO 11/22/162031 Simvastatin 40 mg 11/18/162099 (Zocor Tab) QPM/PO 11/22/162032 Objective Vital Signs Past 12 Hours Date Time Temp Pulse Resp B/P Pulse Ox O2 Delivery O2 Flow Rate FiO2 11/23/16 04:32 36.9 57 18 131/79 95 Room Air 11/23/16 04:00 Room Air 11/23/16 00:42 37.0 52 18 106/59 93 Room Air 11/23/16 00:00 Room Air 11/22/16 20:24 37.2 72 20 145/78 94 Room Air 64 11/22/16 20:00 Room Air Last Recorded Weight-Kilograms: 95.100 Intake & Output 8-Hour Column 11/22/16 11/23/16 11/23/16 16:00 00:00 08:00 Intake Total 275 ml 450 ml 300 ml Balance 275 ml 450 ml 300 ml 24-Hour Column 11/23/16 08:00 Intake Total 1025 ml Balance 1025 ml Physical Exam Constitutional: General Apperance: heathly-appearing Level of Distress: NAD Lungs: Respiratory effort: no dyspnea, good air movement Auscultation: breath sounds normal, no wheezing Cardiovascular: Heart Auscultation: RRR, no murmurs, no rubs, no gallops Peripheral Pulses: Bruits: none appreciated Extremities: no edema Data EKG: Electrocardiogram yesterday shows sinus rhythm with some anterior and inferior ST-T abnormalities. These are not changed from earlier this admission. Telemetry reviewed: Sinus rhythm and sinus bradycardia, overall heart rate is acceptable. Assessment and Plan #1. Bradycardia: It sounds as though she has a long history of bradycardia, which her daughter reports she has as well. It is possible that she has a congenital low heart rate or just a heart rate at the lower limits of normal, or she could have developed early sick sinus syndrome with sinus bradycardia. For the most part she is asymptomatic but she does have intermittent lightheadedness. It is unlikely that she would need a pacemaker, certainly not now. Her HR has increased off Atenolol, and her blood pressure has been acceptable. I would avoid drugs with negative chronotropic effect. #2. Dilated for vena cava: There is no clear reason for this, she may have elevated pressures but her right ventricular function appears normal, she does not have anything to suggest a pulmonary embolism (her ventilation/perfusion scan is negative, her oxygenation is now normal). I would not further evaluate this. #3. Electrocardiographic abnormalities in the precordium: I think this is probably not indicative of coronary abnormalities, a stress test on 05/16/2016 ( preop) where she had no evidence of coronary artery disease. Her enzymes are negative and there are no wall motion abnormalities on echocardiography. Unless things change I would not pursue this further. Thank you for allowing me to participate in her care.
[2016-11-23 08:08] VITALS: BP 139/70; PULSE 53; TEMP 37; O2SAT 94
[2016-11-23] MEDS: CeleBREX 200 MG CAP PO SCH (08:25)
[2016-11-23] MEDS: FERROUS GLUCONATE 324 MG TAB PO SCH (08:25)
[2016-11-23] MEDS: DOCUSATE SODIUM 100 MG CAP PO SCH (08:25)
[2016-11-23] MEDS: TRIAMTERENE/HCTZ 37.5/25MG CAP PO SCH (08:26)
[2016-11-23] MEDS: OXYBUTYNIN CHLORIDE 5 MG TABCR PO SCH (08:26)
[2016-11-23] MEDS: CEPHALEXIN MONOHYDRATE 500 MG CAP PO SCH (08:27)
[2016-11-23] MEDS: ASPIRIN 81 MG ECTAB PO SCH (08:27)
[2016-11-23] MEDS: MULTIVITAMIN TAB PO SCH (08:28)
[2016-11-23] MEDS: PANTOprazole SOD 40 MG TAB PO SCH (08:28)
[2016-11-23] MEDS: POTASSIUM CHLORIDE 10 MEQ TABCR PO SCH (08:28)
--- NOTE | 2016-11-23 08:28 | Orthopedic Progress Note ---
Orthopedic Progress Note Date of Service Nov 23, 2016. Subjective Post OP Day: 5 Reports: feeling well Objective calves soft nontender, N/V intact, dressing C/D/I (Prevena in place), toes mobile Date Time Temp Pulse Resp B/P Pulse Ox O2 Delivery O2 Flow Rate FiO2 11/23/16 08:08 37.0 53 17 139/70 94 Room Air 11/23/16 04:32 36.9 57 18 131/79 95 Room Air 11/23/16 04:00 Room Air 11/23/16 00:42 37.0 52 18 106/59 93 Room Air 11/23/16 00:00 Room Air 11/22/16 20:24 37.2 72 20 145/78 94 Room Air 64 11/22/16 20:00 Room Air 11/22/16 16:00 Room Air 11/22/16 15:21 36.8 67 15 129/67 93 Room Air 11/22/16 14:44 62 95 11/22/16 14:00 61 125/65 75 130/83 76 120/77 11/22/16 12:28 36.8 60 18 139/74 95 Room Air 11/22/16 12:00 Room Air Additional Notes: Negative carotid US and head CT Assessment & Plan Assessment: 71 yo female stable POD #5 s/p Left TKA -PT/OT -dvt proph with GLENIS/SCD/ASA plan for d/c home with HHPT when stable Bradycardia- states she normally has a lower HR, she remains asymptomatic. will cont to observe Plan: 1. Med management- essentially negative cardiac work-up for bradycardia 2. DVT prophylaxis- ASA, TEDs, SCDs 3. PT/OT per medicine 4. D/C planning- home w/ HH today Discharge Planning Discharge Planning: home with home health DVT Prophylaxis: TEDs, SCDs, ASA (ASA 81mg po bid x 1month) Therapy: Physical Therapy
[2016-11-23] MEDS: CHOLECALCIFEROL 1000 INTER.UNIT TAB PO SCH (08:29)
[2016-11-23 09:00] VITALS: BP 139/70; PULSE 53; TEMP 37; O2SAT 94
== END 2016-11-23 11:37 | disposition home health service (06) | DRG 470 ==
LOC: ENRESERVTM → ENRESERVDT → C.ACU 10:29 → C.3E 10:30 → C.2E 11-21 08:50
PROVIDERS: ADMIT Orthopaedic Surgery; ATTEND Orthopaedic Surgery
PROC: 0SRD0J9 Replacement of Left Knee Joint with Synthetic Substitute, Cemented, Open Approach (ICD-10-PCS; principal; 2016-11-18 14:00)
DX: M17.12 Unilateral primary osteoarthritis, left knee (principal); E03.9 Hypothyroidism, unspecified; E78.00 Pure hypercholesterolemia, unspecified; I10 Essential (primary) hypertension; I49.5 Sick sinus syndrome; K21.9 Gastro-esophageal reflux disease without esophagitis; R09.02 Hypoxemia; R00.1 Bradycardia, unspecified; Z79.899 Other long term (current) drug therapy